=== PATIENT | male | born 1935 | race Caucasian/White ===

== ENCOUNTER 2017-04-21 11:29 | Observation (INO) | payer MEDICARE, BC ==
[~2017-04-21] VITALS: Ht 180.3 cm; Wt 80.0 kg
[2017-04-21] VITALS (7 sets, daily range): BP systolic 140–192; BP diastolic 63–88; PULSE 53–72; RESP 16–20; TEMP 97.7–99.1; O2SAT 94–99
[~2017-04-21 11:29] MED LIST: ASPI81TA22 PO; BETA0.052 TOPICAL; FLUT1LOT TOPICAL; IPRAAER INH; KETO2CRE TOPICAL; SYMB80AE INH
[2017-04-21] MEDS ORDERED: AMLO10TA2 PO (11:57)
[2017-04-21] MEDS ORDERED: FURO20TA PO (11:57)
[2017-04-21] MEDS ORDERED: SODIUM CHLORIDE 0.9% FLUSH 10 ML FLUSH IVF PRN (12:00)
--- NOTE | 2017-04-21 12:08 | PD ---
HPI Chief Complaint: Syncope/Near-Syncope Time Seen by Provider: 11:56 Travel History International Travel<30 days: No Contact w/Intl Traveler<30days: No Traveled to known affect area: No History of Present Illness HPI Patient is an 82-year-old male presents emergency department after syncopal episode. The patient states he was sitting down to dinner the next thing he knew he was on the ground. His is in the next room heard him hit the ground and then went to investigate and found coffee grounds everywhere, no seizure activity was seen. The patient now is endorsing some chest tightness, states was mild about 3 out of 10 and is gradually resolving. He is followed by Dr. rodriguez said he had a stress test this time last year. He states he had a heart attack before but cannot remember any details. PFSH Past Medical History High Cholesterol: Yes COPD: Yes Diminished Hearing: Yes ([place]) Hypertension: Yes Respiratory: Yes (COPD) Integumentary: Yes (ACTINIC KERATOSIS) Tetanus Vaccination: > 5 Years Influenza Vaccination: No Social History Alcohol Use: Yes (OCCAS) Tobacco Use: No Substance Use: No Allergies-Medications (Allergen,Severity, Reaction): Coded Allergies: amoxicillin (Unverified Allergy, Severe, DONT REMEMBER, 04/21/17) clavulanic acid (Unverified Allergy, Severe, DONT REMEMBER, 04/21/17) penicillin G (Unverified Allergy, Severe, HIVES, 04/21/17) prednisone (Unverified Allergy, Severe, IMPENDING DOOM, 04/21/17) simvastatin (Unverified Allergy, Severe, CAN'T REMEMBER, 04/21/17) tiotropium (Unverified Allergy, Severe, CAN'T REMEMBER, 04/21/17) Reported Meds & Prescriptions Reported Meds & Active Scripts Active Reported Furosemide 20 Mg Tab 20 Mg PO DAILY Amlodipine (Amlodipine Besylate) 10 Mg Tab 10 Mg PO DAILY Combivent Respimat Inh (Ipratropium-Albuterol Inh) 20-100 Alf/Act Aero 1 Puff INH QID Review of Systems Except as stated in HPI: all other systems reviewed are Neg Physical Exam Narrative GENERAL: Well-developed well-nourished no obvious distress SKIN: Focused skin assessment warm/dry. HEAD: Atraumatic. Normocephalic. EYES: Pupils equal and round. No scleral icterus. No injection or drainage. ENT: No nasal bleeding or discharge. Mucous membranes pink and moist. NECK: Trachea midline. No JVD. CARDIOVASCULAR: Regular rate and rhythm. No murmur appreciated. 2+ but equal pulses in all 4 extremities RESPIRATORY: No accessory muscle use. Clear to auscultation. Breath sounds equal bilaterally. GASTROINTESTINAL: Abdomen soft, non-tender, nondistended. Hepatic and splenic margins not palpable. MUSCULOSKELETAL: No obvious deformities. No clubbing. No cyanosis. No edema. NEUROLOGICAL: Awake and alert cranial nerves II through XII are grossly intact and nonfocal, 5 out of 5 strength in all 4 extremity's. Cerebellar testing negative. PSYCHIATRIC: Appropriate mood and affect; insight and judgment normal. Data Data Last Documented VS Vital Signs Date Time Temp Pulse Resp B/P (MAP) Pulse Ox O2 Delivery O2 Flow Rate FiO2 04/21/17 11:53 20 98 Room Air 04/21/17 11:48 53 04/21/17 11:43 97.8 Orders Orders Complete Blood Count With Diff (04/21/17 11:47) Comprehensive Metabolic Panel (04/21/17 11:47) Magnesium (Mg) (04/21/17 11:47) Prothrombin Time / Inr (Pt) (04/21/17 11:47) Act Partial Throm Time (Ptt) (04/21/17 11:47) Troponin I (04/21/17 11:47) Ecg Monitoring (04/21/17 11:47) Iv Access Insert/Monitor (04/21/17 11:47) Oximetry (04/21/17 11:47) Oxygen Administration (04/21/17 11:47) Sodium Chloride 0.9% Flush (Ns Flush) (04/21/17 12:00) Electrocardiogram (04/21/17 11:41) Admit Order (Ed Use Only) (04/21/17 ) Labs Laboratory Tests Test 04/21/17 12:20 White Blood Count 7.8 TH/MM3 Red Blood Count 5.01 MIL/MM3 Hemoglobin 15.6 GM/DL Hematocrit 46.0 % Mean Corpuscular Volume 92.0 FL Mean Corpuscular Hemoglobin 31.3 PG Mean Corpuscular Hemoglobin Concent 34.0 % Red Cell Distribution Width 13.7 % Platelet Count 184 TH/MM3 Mean Platelet Volume 7.2 FL Neutrophils (%) (Auto) 75.9 % Lymphocytes (%) (Auto) 16.6 % Monocytes (%) (Auto) 5.9 % Eosinophils (%) (Auto) 0.6 % Basophils (%) (Auto) 1.0 % Neutrophils # (Auto) 5.9 TH/MM3 Lymphocytes # (Auto) 1.3 TH/MM3 Monocytes # (Auto) 0.5 TH/MM3 Eosinophils # (Auto) 0.0 TH/MM3 Basophils # (Auto) 0.1 TH/MM3 CBC Comment DIFF FINAL Differential Comment Prothrombin Time 10.1 SEC Prothromb Time International Ratio 1.0 RATIO Activated Partial Thromboplast Time 23.6 SEC Blood Urea Nitrogen 18 MG/DL Creatinine 1.32 MG/DL Random Glucose 130 MG/DL Total Protein 7.4 GM/DL Albumin 3.8 GM/DL Calcium Level 9.4 MG/DL Magnesium Level 2.2 MG/DL Alkaline Phosphatase 64 U/L Aspartate Amino Transf (AST/SGOT) 21 U/L Alanine Aminotransferase (ALT/SGPT) 19 U/L Total Bilirubin 0.3 MG/DL Sodium Level 138 MEQ/L Potassium Level 4.5 MEQ/L Chloride Level 102 MEQ/L Carbon Dioxide Level 27.9 MEQ/L Anion Gap 8 MEQ/L Estimat Glomerular Filtration Rate 52 ML/MIN Troponin I LESS THAN 0.02 NG/ML MDM Medical Decision Making Medical Screen Exam Complete: Yes Emergency Medical Condition: Yes Differential Diagnosis Vasovagal syncope, cardiogenic syncope, anemia, electrolyte abnormality. Narrative Course Patient roomed emerged permit, appears well and in obvious distress, EKG is nonischemic, initial troponin negative, lecture lites within normal limits and H &H within normal limits. Discussed with the patient need for observation status for further workup, he's not had a cardiac catheterization or stress test in some time according to him. He is discussed with the residents for admission, he stable for floor on telemetry. Diagnosis Primary Impression: Syncope and collapse Admitting Information Admitting Physician Requests: Observation Condition: Stable Hipolito Menard MD Apr 21, 2017 12:07
[2017-04-21 12:35] LABS: AUTOMATED NEUTROPHIL # 5.9 TH/MM3 (1.8-7.7); BASOPHIL # 0.1 TH/MM3 (0-0.2); EOSINOPHIL % 0.6 % (0.0-4.0); HEMO FLAGS DIFF FINAL; LYMPH % 16.6 % (9.0-44.0); LYMPHOCYTE # 1.3 TH/MM3 (1.0-4.8); MEAN CORPUSCULAR HEMOGLOBIN 31.3 PG (27.0-34.0); MONO % 5.9 % (0.0-8.0); NEUT % 75.9 % (16.0-70.0); PLATELET COUNT 184 TH/MM3 (150-450); RED BLOOD COUNT 5.01 MIL/MM3 (4.50-5.90); RED CELL DISTRIBUTION WIDTH 13.7 % (11.6-17.2); WHITE BLOOD COUNT 7.8 TH/MM3 (4.0-11.0)
[2017-04-21 12:41] LABS: APTT (PATIENT) 23.6 SEC (24.3-30.1); PROTHROMBIN TIME - PATIENT 10.1 SEC (9.8-11.6)
[2017-04-21 12:48] LABS: ALT (GPT) 19 U/L (12-78)
[2017-04-21 12:52] LABS: ALKALINE PHOSPHATASE 64 U/L (45-117); ANION GAP 8 MEQ/L (5-15); AST (GOT) 21 U/L (15-37); BICARBONATE 27.9 MEQ/L (21.0-32.0); BLOOD UREA NITROGEN 18 MG/DL (7-18); CHLORIDE 102 MEQ/L (98-107); GLOMERULAR FILTRATION RATE 52 ML/MIN (>89); MAGNESIUM 2.2 MG/DL (1.5-2.5); POTASSIUM 4.5 MEQ/L (3.5-5.1); SODIUM (NA) 138 MEQ/L (136-145); TOTAL BILIRUBIN ADULT 0.3 MG/DL (0.2-1.0)
--- NOTE | 2017-04-21 14:44 | HHI.HP ---
[facility] Service Family Medicine Primary Care Physician Christian Rodrigues MD Admission Diagnosis Syncope, Chest pain Diagnoses: Chief Complaint: syncope International Travel<30 Days: No Contact w/Intl Traveler<30days: No Known Affected Area: No History of Present Illness 82-year-old male with history of hypertension, COPD who presents today with syncopal episode. Patient was eating breakfast this morning, the next thing he remembers was waking up on the floor. Denies hitting his head. His was outside and immediately came in after she heard the thump. This has happened before, last was in September 2016. He states he was seen in [place] emergency department. He denies any seizure-like activity. Said he had a taste in his mouth, like acid right before started. Also follicular is having difficulty breathing. Denies any dizziness or lightheadedness. He also states that right before happens, he doesn't know where he is and that he feels like he is in a tunnel. Had some chest pain afterwards, felt like his chest was pain squeezed. Was initially 5/10, now it has resolved. Denies any lightheadedness when standing up. After the syncopal episode, he took a nap for 2 hours. Did have some urinary incontinence at that time. No bowel or bladder incontinence at the time of the event. He did not bite his tongue. Denies any palpitations. Also endorses chest pain at the previous syncopal episode, denies any other chest pain at rest. Denies any numbness/tingling, weakness, headaches. His PCP is Dr. Rodrigues. He also sees the air sampler, Dr. Palacios. Upon further questioning, he states that they think he had a myocardial infarction and his last syncopal episode. He did used to see the air sampler, where he states his blood pressure has been elevated recently. He thinks he may have been diagnosed with CHF as well. Review of Systems Constitutional: DENIES: Diaphoretic episodes, Fever, Weight loss, Chills Eyes: DENIES: Blurred vision, Vision loss, Double Vision Ears, nose, mouth, throat: DENIES: Hearing loss, Sinus Pain Respiratory: DENIES: Cough, Shortness of breath Cardiovascular: COMPLAINS OF: Chest pain, Syncope, Lower Extremity Edema, DENIES: Palpitations Gastrointestinal: DENIES: Abdominal pain, Constipation, Diarrhea, Nausea, Vomiting Genitourinary: DENIES: Hematuria, Dysuria Musculoskeletal: DENIES: Back pain, Neck pain Integumentary: DENIES: Abnormal pigmentation, Rash Neurologic: DENIES: Headache, Localized weakness, Paresthesias, Seizures, Tremor, Poor Balance Psychiatric: DENIES: Confusion, Mood changes Past Family Social History Past Medical History COPD HTN CHF/NJ Past Surgical History Left knee trauma Reported Medications Reported Meds & Active Scripts Active Reported Furosemide 20 Mg Tab 20 Mg PO DAILY Amlodipine (Amlodipine Besylate) 10 Mg Tab 10 Mg PO DAILY Combivent Respimat Inh (Ipratropium-Albuterol Inh) 20-100 Intermediate/Act Aero 1 Puff INH QID Allergies: Coded Allergies: amoxicillin (Unverified Allergy, Severe, DONT REMEMBER, 04/21/17) clavulanic acid (Unverified Allergy, Severe, DONT REMEMBER, 04/21/17) penicillin G (Unverified Allergy, Severe, HIVES, 04/21/17) prednisone (Unverified Allergy, Severe, IMPENDING DOOM, 04/21/17) simvastatin (Unverified Allergy, Severe, CAN'T REMEMBER, 04/21/17) tiotropium (Unverified Allergy, Severe, CAN'T REMEMBER, 04/21/17) Active Ordered Medications Active Medications Sodium Chloride (NS Flush) 2 ml UNSCH PRN IVF; Start 04/21/17 at 12:00 Family History Heart disease in family Social History Lives at home with , other odd jobs Alcohol-occasional beer Tobacco-Quit 13 years ago; smoked 1/2PPD for 60years Physical Exam Vital Signs Vital Signs Date Time Temp Pulse Resp B/P (MAP) Pulse Ox O2 Delivery O2 Flow Rate FiO2 04/21/17 11:53 20 98 Room Air 04/21/17 11:48 53 98 Room Air 04/21/17 11:43 97.8 53 16 140/63 (88) 98 04/21/17 11:34 97.7 55 18 192/81 (118) 94 Physical Exam GENERAL: This is a well-nourished, well-developed patient, in no apparent distress. SKIN: No rashes, ecchymoses or lesions. Cool and dry. HEAD: Atraumatic. Normocephalic. No temporal or scalp tenderness. EYES: Pupils equal round and reactive. Extraocular motions intact. No scleral icterus. No injection or drainage. ENT: Throat without erythema, tonsillar hypertrophy or exudate. Uvula midline. Airway patent. NECK: Trachea midline. No JVD or lymphadenopathy. Supple, nontender. CARDIOVASCULAR: Regular rate and rhythm without murmurs, gallops, or rubs. RESPIRATORY: Clear to auscultation. Breath sounds equal bilaterally. No wheezes , rales, or rhonchi. GASTROINTESTINAL: Abdomen soft, non-tender, nondistended. No hepato-splenomegaly , or palpable masses. No guarding. MUSCULOSKELETAL: Extremities without clubbing, cyanosis, or edema. No joint tenderness, effusion, or edema noted. No calf tenderness. NEUROLOGICAL: Awake and alert. Cranial nerves II through XII intact. Motor and sensory grossly within normal limits. Five out of 5 muscle strength in all muscle groups. Normal speech. Laboratory Laboratory Tests Test 04/21/17 12:20 White Blood Count 7.8 Red Blood Count 5.01 Hemoglobin 15.6 Hematocrit 46.0 Mean Corpuscular Volume 92.0 Mean Corpuscular Hemoglobin 31.3 Mean Corpuscular Hemoglobin Concent 34.0 Red Cell Distribution Width 13.7 Platelet Count 184 Mean Platelet Volume 7.2 Neutrophils (%) (Auto) 75.9 Lymphocytes (%) (Auto) 16.6 Monocytes (%) (Auto) 5.9 Eosinophils (%) (Auto) 0.6 Basophils (%) (Auto) 1.0 Neutrophils # (Auto) 5.9 Lymphocytes # (Auto) 1.3 Monocytes # (Auto) 0.5 Eosinophils # (Auto) 0.0 Basophils # (Auto) 0.1 CBC Comment DIFF FINAL Differential Comment Prothrombin Time 10.1 Prothromb Time International Ratio 1.0 Activated Partial Thromboplast Time 23.6 Blood Urea Nitrogen 18 Creatinine 1.32 Random Glucose 130 Total Protein 7.4 Albumin 3.8 Calcium Level 9.4 Magnesium Level 2.2 Alkaline Phosphatase 64 Aspartate Amino Transf (AST/SGOT) 21 Alanine Aminotransferase (ALT/SGPT) 19 Total Bilirubin 0.3 Sodium Level 138 Potassium Level 4.5 Chloride Level 102 Carbon Dioxide Level 27.9 Anion Gap 8 Estimat Glomerular Filtration Rate 52 Troponin I LESS THAN 0.02 Result Diagram: 04/21/17 1220 04/21/17 1220 Caprini VTE Risk Assessment Caprini VTE Risk Assessment: Mod/High Risk (score >= 2) Caprini Risk Assessment Model Point Value = 1 Point Value = 2 Point Value = 3 Point Value = 5 Age 41-60 Minor surgery BMI > 25 kg/m2 Swollen legs Varicose veins or History of unexplained or recurrent spontaneous Oral contraceptives or hormone replacement Sepsis (< 1 month) Serious lung disease, including pneumonia (< 1 month) Abnormal pulmonary function Acute myocardial infarction Congestive heart failure (< 1 month) History of inflammatory bowel disease Medical patient at bed rest Age 61-74 Arthroscopic surgery Major open surgery (> 45 min) Laparoscopic surgery (> 45 min) Malignancy Confined to bed (> 72 hours) Immobilizing plaster cast Central venous access Age >= 75 History of VTE Family history of VTE Factor V Leiden Prothrombin [id number] Lupus anticoagulant Anticardiolipin antibodies Elevated serum homocysteine Heparin-induced thrombocytopenia Other congenital or acquired thrombophilia Stroke (< 1 month) Elective arthroplasty Hip, pelvis, or leg fracture Acute spinal cord injury (< 1 month) Prophylaxis Regimen Total Risk Factor Score Risk Level Prophylaxis Regimen 0-1 Low Early ambulation 2 Moderate Order ONE of the following: *Sequential Compression Device (SCD) *Heparin 5000 units SQ BID 3-4 Higher Order ONE of the following medications: *Heparin 5000 units SQ TID *Enoxaparin/Lovenox 40 mg SQ daily (WT < 150 kg, CrCl > 30 mL/min) *Enoxaparin/Lovenox 30 mg SQ daily (WT < 150 kg, CrCl > 10-29 mL/min) *Enoxaparin/Lovenox 30 mg SQ BID (WT < 150 kg, CrCl > 30 mL/min) AND/OR *Sequential Compression Device (SCD) 5 or more Highest Order ONE of the following medications: *Heparin 5000 units SQ TID (Preferred with Epidurals) *Enoxaparin/Lovenox 40 mg SQ daily (WT < 150 kg, CrCl > 30 mL/min) *Enoxaparin/Lovenox 30 mg SQ daily (WT < 150 kg, CrCl > 10-29 mL/min) *Enoxaparin/Lovenox 30 mg SQ BID (WT < 150 kg, CrCl > 30 mL/min) AND *Sequential Compression Device (SCD) Assessment and Plan Assessment and Plan 82-year-old male with history of hypertension, COPD, heart disease who presents today with syncopal episode. We will admit for evaluation and workup. Code Status Full Discussed Condition With Dr. Menard Problem List: (1) Syncope ICD Codes: R55 - Syncope and collapse Plan: Patient with syncopal episode earlier this morning. This is his second syncopal episode in the last year. He has history of heart disease, likely CHF and possible [place] in the past as well. DDx: Cardiac, including arrhythmia, bradycardia, structural disease; orthostatic , including autonomic; psychogenic vs neurologic. No neurological findings. Patient did present with elevated blood pressure, and borderline bradycardia EKG: wnl, no ST changes; Initial troponin <0.02 -Trend troponins/EKG -Orthostatic vital signs -Neuro checks -2D Echo -US carotids -Telemetry (2) Hypertension ICD Codes: I10 - Essential (primary) hypertension Status: Acute Plan: BP 192/81 on arrival. Trended down without intervention -Regular vitals -Orthostatic BP -Continue home meds (Med rec with Dr. Palacios's office) -Amlodipine 5mg daily -Losartan 25mg daily -Metoprolol tartrate 25mg BID (3) CHF (congestive heart failure) ICD Codes: I50.9 - Heart failure, unspecified (4) COPD (chronic obstructive pulmonary disease) ICD Codes: J44.9 - Chronic obstructive pulmonary disease, unspecified Plan: Continue home Symbicort Oxygen PRN (5) FEN Status: Acute Plan: Fluids: PO, limit fluids due to CHF Electrolytes: wnl Nutrition: heart healthy diet DVT ppx: heparin Problem Qualifiers (1) Syncope: Qualified Codes: R55 - Syncope and collapse (2) Hypertension: Qualified Codes: I10 - Essential (primary) hypertension (3) CHF (congestive heart failure): Qualified Codes: I50.9 - Heart failure, unspecified (4) COPD (chronic obstructive pulmonary disease): Qualified Codes: J44.9 - Chronic obstructive pulmonary disease, unspecified Vish Damico MD, R2 Apr 21, 2017 14:44
[2017-04-21] MEDS ORDERED: SODIUM CHLORIDE 0.9% FLUSH 10 ML FLUSH IV FLUSH PRN (15:30)
[2017-04-21] MEDS ORDERED: ACETAMINOPHEN 325 MG TAB PO PRN (16:00)
[2017-04-21] MEDS ORDERED: ONDANSETRON HCL 4 MG/2 ML VIAL IVP PRN (16:00)
[2017-04-21] MEDS: HEPARIN SODIUM - SQ 10,000 UNITS/ML VIAL SQ SCH (16:01)
[2017-04-21] MEDS: ALBUTEROL SULFATE 90 MCG/ACT HFA 8 GM INHALER INH SCH ×2 (17:23→21:00)
[2017-04-21] MEDS ORDERED: NON-FORMULARY DRUG (Ipratropium-Albuterol Inh (Combivent Respimat Inh) 1 PUFF) INH SCH (18:00)
[2017-04-21] MEDS ORDERED: hydrALAZINE HCL 10 MG TAB PO PRN (19:45)
[2017-04-21] MEDS: METOPROLOL TARTRATE 25 MG TAB PO SCH (21:23)
[2017-04-21] MEDS: SODIUM CHLORIDE 0.9% FLUSH 10 ML FLUSH IV FLUSH SCH (21:24)
--- NOTE | 2017-04-21 22:33 | RADRPT ---
EXAM DATE/TIME: 04/21/2017 18:11 [place] COMPARISON: No previous studies available for comparison. INDICATIONS : Syncope. MEDICAL HISTORY : Hypercholesterolemia. Hypertension. Syncope. COPD. SURGICAL HISTORY : Knee arthroscopy. ENCOUNTER: Initial ACUITY: 1 day PAIN SCORE: 10 LOCATION: Bilateral neck PEAK SYSTOLIC VELOCITIES (cm/sec): ICA/CCA RATIO: Right: 1.1 Left: 0.8 ICA: Right: 73.7 Left: 67.2 CCA: Right: 65.9 Left: 80.6 ECA: Right: 100.0 Left: 118.0 VERTEBRAL: Right: 50.4 antegrade Left: 39.8 antegrade Elevated flow velocities and ICA/CCA ratios have been found to correlate with increased degrees of vessel stenosis, calculated as percentage of diameter relative to a normal segment of distal ICA/CCA FINDINGS: RIGHT CAROTID: No significant stenosis is visualized. There is mild shadowing calcified plaque in the internal mina tid artery. The waveforms are within normal limits. LEFT CAROTID: No significant stenosis is visualized. There is mild shadowing calcified plaque in the distal common carotid artery. The waveforms are within normal limits. VERTEBRAL ARTERIES: Antegrade flow is seen in both vertebral arteries. CONCLUSION: Bilateral calcified plaque with hemodynamic profile characteristic of less than 50% stenosis. Jatin Samuel MD on April 21, 2017 at 22:29 Board Certified Radiologist. This report was verified electronically.
[2017-04-22 00:43] VITALS: BP 162/74; PULSE 52; RESP 20; TEMP 97.9; O2SAT 95
[2017-04-22] MEDS: HEPARIN SODIUM - SQ 10,000 UNITS/ML VIAL SQ SCH (04:00)
[2017-04-22 04:20] VITALS: BP 157/69; PULSE 56; RESP 18; TEMP 97.9; O2SAT 94
[2017-04-22] MEDS: ALBUTEROL SULFATE 90 MCG/ACT HFA 8 GM INHALER INH SCH ×2 (07:59→13:00)
[2017-04-22] MEDS: METOPROLOL TARTRATE 25 MG TAB PO SCH (07:59)
[2017-04-22 08:00] VITALS: PULSE 64
[2017-04-22] MEDS: SODIUM CHLORIDE 0.9% FLUSH 10 ML FLUSH IV FLUSH SCH (08:00)
[2017-04-22] MEDS ORDERED: FUROSEMIDE 20 MG TAB PO SCH (09:00)
[2017-04-22] MEDS ORDERED: LOSARTAN 25 MG TAB PO SCH (09:00)
[2017-04-22] MEDS ORDERED: TIOTROPIUM BROMIDE 18 MCG INH INH SCH (09:00)
[2017-04-22 09:27] VITALS: BP 171/73; PULSE 51; RESP 12; TEMP 97; O2SAT 95
--- NOTE | 2017-04-22 12:12 | HHI.FPPN ---
Subjective Remarks Patient seen and examined this morning. No acute events overnight. Patient reports no complaints/concerns this morning. Denies any syncopal episodes overnight of this morning. He has been up walking around. No lightheadedness/ dizziness, chest pain, shortness of breath, fevers/chills, nausea/vomiting, constipation/diarrhea. He is eager to go home today. (Vish Damico MD, R2) Objective Vitals Vital Signs Date Time Temp Pulse Resp B/P (MAP) Pulse Ox O2 Delivery O2 Flow Rate FiO2 04/22/17 09:27 97.0 51 12 171/73 (105) 95 04/22/17 04:20 97.9 56 18 157/69 (98) 94 04/22/17 00:43 97.9 52 20 162/74 (103) 95 04/21/17 21:45 97 04/21/17 18:31 71 04/21/17 17:41 99.1 72 19 178/78 (111) 99 163/76 (105) 192/88 (122) 04/21/17 16:14 04/21/17 15:59 67 16 161/73 (102) 95 Room Air I/O 04/21/17 04/21/17 04/21/17 04/22/17 04/22/17 04/22/17 07:00 15:00 23:00 07:00 15:00 23:00 Intake Total 450 ml Output Total 500 ml Balance -50 ml Intake Oral 450 ml Output Urine Total 500 ml # Voids 2 2 (Vish Damico MD, R2) Result Diagram: 04/21/17 1220 04/21/17 1220 Objective Remarks GENERAL: No acute distress. Lying in bed. CARDIOVASCULAR: Regular rate and rhythm. RESPIRATORY: No accessory muscle use. Clear to auscultation. Breath sounds equal bilaterally. GASTROINTESTINAL: Abdomen soft, non-tender, nondistended. Hepatic and splenic margins not palpable. MUSCULOSKELETAL: Extremities without clubbing, cyanosis, or edema. No obvious deformities. NEUROLOGICAL: Awake and alert. Motor grossly within normal limits. Normal speech. PSYCHIATRIC: Appropriate mood and affect; insight and judgment normal. (Vish Damico MD, R2) A/P Assessment and Plan 82-year-old male with history of hypertension, COPD, heart disease admitted for syncopal episode. Discharge Planning Today after echocardiogram (Vish Damico MD, R2) Attending Attestation THIS CASE WAS DISCUSSED WITH THE RESIDENT PHYSICIANS. I HAVE REVIEWED THE RECORD , PATIENT SEEN AND EXAMINED< AND AGREE WITH THE ABOVE NOTE AND PLAN OF CARE WAS DISCUSSED. I HAVE AUTHORIZED THE ORDERS (Gómez Monsivais MD) Problem List: (1) Syncope ICD Codes: R55 - Syncope and collapse Plan: Patient with syncopal episode. This is his second syncopal episode in the last year. He has history of heart disease, likely CHF and possible [place] in the past as well. Likely caused due to vasovagal vs medication effects. EKG: wnl, no ST changes; ACS negative US carotids: <50% stenosis -Neuro checks -2D Echo -Telemetry (2) Hypertension ICD Codes: I10 - Essential (primary) hypertension Status: Acute Plan: BP 192/81 on arrival. Trended down without intervention -Regular vitals -Continue home meds (Med rec with Dr. Palacios's office) -Amlodipine 5mg daily -Losartan 25mg daily -Metoprolol tartrate 25mg BID (3) CHF (congestive heart failure) ICD Codes: I50.9 - Heart failure, unspecified Status: Chronic Plan: Continue lasix Echo pending today (4) COPD (chronic obstructive pulmonary disease) ICD Codes: J44.9 - Chronic obstructive pulmonary disease, unspecified Plan: Continue home Symbicort Oxygen PRN (5) FEN Status: Acute Plan: Fluids: PO, limit fluids due to CHF Electrolytes: wnl Nutrition: heart healthy diet DVT ppx: heparin (Vish Damico MD, R2) Problem Qualifiers (1) Syncope: Qualified Codes: R55 - Syncope and collapse (2) Hypertension: Qualified Codes: I10 - Essential (primary) hypertension (3) CHF (congestive heart failure): Qualified Codes: I50.9 - Heart failure, unspecified (4) COPD (chronic obstructive pulmonary disease): Qualified Codes: J44.9 - Chronic obstructive pulmonary disease, unspecified Vish Damico MD, R2 Apr 22, 2017 12:12 Gómez Monsivais MD Apr 23, 2017 10:24
[2017-04-22 12:21] LABS: AUTOMATED NEUTROPHIL # 3.7 TH/MM3 (1.8-7.7); BASOPHIL % 0.7 % (0.0-2.0); EOSINOPHIL % 0.4 % (0.0-4.0); HEMATOCRIT 45.8 % (39.0-51.0); HEMO FLAGS DIFF FINAL; LYMPH % 22.5 % (9.0-44.0); LYMPHOCYTE # 1.2 TH/MM3 (1.0-4.8); MEAN CELL VOLUME 91.3 FL (80.0-100.0); MEAN CORPUSCULAR HEMOGLOBIN 31.3 PG (27.0-34.0); MEAN CORPUSCULAR HGB CONC 34.3 % (32.0-36.0); MONO % 7.5 % (0.0-8.0); NEUT % 68.9 % (16.0-70.0); PLATELET COUNT 201 TH/MM3 (150-450); RED BLOOD COUNT 5.02 MIL/MM3 (4.50-5.90); RED CELL DISTRIBUTION WIDTH 13.4 % (11.6-17.2); WHITE BLOOD COUNT 5.4 TH/MM3 (4.0-11.0)
[2017-04-22 12:35] LABS: ANION GAP 5 MEQ/L (5-15); BICARBONATE 32.3 MEQ/L (21.0-32.0); BLOOD UREA NITROGEN 13 MG/DL (7-18); CHLORIDE 101 MEQ/L (98-107); GLOMERULAR FILTRATION RATE 60 ML/MIN (>89); POTASSIUM 4.1 MEQ/L (3.5-5.1); SODIUM (NA) 138 MEQ/L (136-145)
--- NOTE | 2017-04-22 13:00 | EKG ---
Date Performed: 04/22/2017 Time Performed: 02:17:52 PTAGE: 82 years EKG: SINUS BRADYCARDIA BORDERLINE ECG PREVIOUS TRACING : 04/21/2017 18.39 Compared to prior tracing no significant change DOCTOR: Yosvany Jacobo Interpretating Date/Time 04/22/2017 12:58:23
--- NOTE | 2017-04-22 13:00 | EKG ---
Date Performed: 04/21/2017 Time Performed: 11:41:09 PTAGE: 82 years EKG: SINUS BRADYCARDIA BORDERLINE ECG Compared to prior tracing no significant change DOCTOR: Yosvany Jacobo Interpretating Date/Time 04/22/2017 12:58:56
--- NOTE | 2017-04-22 13:00 | EKG ---
Date Performed: 04/21/2017 Time Performed: 18:39:46 PTAGE: 82 years EKG: SINUS BRADYCARDIA MINIMAL ST DEPRESSION BORDERLINE ECG PREVIOUS TRACING : 04/21/2017 11.41 Compared to prior tracing no significant change DOCTOR: Yosvany Jacobo Interpretating Date/Time 04/22/2017 12:58:43
[2017-04-22 13:03] VITALS: BP 172/74; PULSE 57; RESP 18; TEMP 97.8; O2SAT 95
--- NOTE | 2017-04-22 14:36 | HHI.DCPOC ---
Discharge Care Plan Diagnosis: (1) Hypertension (2) Syncope (3) CHF (congestive heart failure) (4) COPD (chronic obstructive pulmonary disease) Goals to Promote Your Health * To prevent worsening of your condition and complications * To maintain your health at the optimal level Directions to Meet Your Goals Take your medications as prescribed Follow your dietary instruction Follow activity as directed Keep your appointments as scheduled Take your immunizations and boosters as scheduled If your symptoms worsen call your PCP, if no PCP go to Urgent Care Center or Emergency Room Smoking is Dangerous to Your Health. Avoid second hand smoke Call the 24-hour hour crisis hotline for domestic abuse at Vish Damico MD, R2 Apr 22, 2017 14:36
[2017-04-22] MEDS ORDERED: METO25TA3 PO (14:37)
[2017-04-22] MEDS ORDERED: COZA25TA PO (14:37)
[2017-04-22 14:52] VITALS: BP 156/60
--- NOTE | 2017-04-22 16:22 | ECHRPT ---
Indication: SYNCOPE CONCLUSIONS Very technically difficult study. Limited images due to COPD. Overall very limited echocardiogram, unable to determine anything of clinical value. BP: 157 / 69 HR: 56 Rhythm: Sinus MEASUREMENTS (Male / Female) Normal Values Technical Quality:Very technically difficult study M-MODE LV Diastolic Diameter MM 4.2 cm 4.2 - 5.9 / 3.9 - 5.3 cm LV Systolic Diameter MM 3.2 cm LV Ejection Fraction MM Teich 47.0 % LV Cardiac Index MM Teich 1036.5 cm/minm IVS Diastolic Thickness MM 1.2 cm 0.6 - 1.0 / 0.6 - 0.9 cm LVPW Diastolic Thickness MM 1.2 cm 0.6 - 1.0 / 0.6 - 0.9 cm LV Relative Wall Thickness MM 0.6 0.24 - 0.42 / 0.22 - 0.42 LV Mass Index MM 90.5 g/m 49 - 115 / 43 - 95 g/m RV Diastolic Diameter MM 2.5 cm FINDINGS LEFT VENTRICLE The left ventricle is not well visualized. RIGHT VENTRICLE The right ventricle was not well visualized. LEFT ATRIUM The left atrium was not well visualized. RIGHT ATRIUM The right atrium is not well visualized. ATRIAL SEPTUM The interatrial septum not well visualized. AORTA The aortic root and proximal ascending aorta are not well visualized. MITRAL VALVE The mitral valve is not well visualized. AORTIC VALVE The aortic valve is not well visualized. TRICUSPID VALVE The tricuspid valve is not well visualized. PULMONARY VALVE The pulmonary valve is not well visualized. Aron Candelaria DO (Electronically Signed) Final Date:22 April 2017 16:21
== END 2017-04-22 16:20 | disposition home or self-care (01) ==
LOC: NEPC 11:29 → NEDA 14:42 → NEPGCP 16:40
PROVIDERS: ADMIT Family Medicine; ATTEND Family Medicine
DX: R55 Syncope and collapse (principal); R00.1 Bradycardia, unspecified; I11.0 Hypertensive heart disease with heart failure; I50.9 Heart failure, unspecified; J44.9 Chronic obstructive pulmonary disease, unspecified; E78.00 Pure hypercholesterolemia, unspecified; I25.2 Old myocardial infarction; R32 Unspecified urinary incontinence; H91.90 Unspecified hearing loss, unspecified ear; Z79.899 Other long term (current) drug therapy; Z87.891 Personal history of nicotine dependence
CPT/HCPCS: 80048; 80053; 80307; 83735; 84484; 85025; 85610; 85730; 93005; 93306; 93880; 99285; G0378; J1644

== ENCOUNTER 2017-10-03 07:48 | Day surgery (SDC) | payer MEDICARE, BC ==
[~2017-10-03 07:48] MED LIST changes: +AMLO10TA2 PO; -ASPI81TA22 PO; -BETA0.052 TOPICAL; -FLUT1LOT TOPICAL; +FURO20TA PO; -KETO2CRE TOPICAL; +METO25TA3 PO; -SYMB80AE INH
[2017-10-03] MEDS ORDERED: FLUT1LOT TOPICAL (08:28)
[2017-10-03] MEDS ORDERED: HYDR25TA5 PO (08:28)
[2017-10-03] MEDS ORDERED: BETA0.052 TOPICAL (08:28)
[2017-10-03] MEDS ORDERED: KETO2CRE TOPICAL (08:28)
[2017-10-03] MEDS ORDERED: IPRAAER INH (08:28)
[2017-10-03] MEDS ORDERED: VANCOMYCIN 1000 MG/NS 250 ML IV SCH ×2 (08:30)
[2017-10-03] MEDS ORDERED: POVIDONE IODINE 5% (ANTISEPSIS KIT) 4 APPLICATIONS EACH NARE SCH (08:30)
[2017-10-03] MEDS ORDERED: MUPIROCIN 2% OINT 1 APPLIC/GM SYR NASAL SCH (08:30)
[2017-10-03] MEDS ORDERED: CHLORHEXIDINE GLUCONATE 2 % 1 PACK (2 CLOTHS) TOPICAL SCH (08:30)
--- NOTE | 2017-10-03 11:09 | MA ---
cc: Driss Sosa MD DATE: 10/03/2017 PROCEDURE PERFORMED: Loop recorder insertion. INDICATIONS FOR THE PROCEDURE: Syncope. DESCRIPTION OF PROCEDURE: The patient was brought to the DOC Unit in the postabsorptive state. After informed consent was obtained, a Xylo LINQ loop recorder was inserted subcutaneously to the left chest. The patient tolerated the procedure well without any apparent complications. Tachybrady pause and atrial fibrillation detection was enabled. The initial R-wave was 0.28 millivolts. The serial number was [id number]. Driss Sosa MD ADRIANE/TAMIE , 10:58 AM , 11:08 AM
== END 2017-10-03 12:30 | disposition home or self-care (01) ==
LOC: HDOC 07:48 → HDIC 07:48 → HDOC 12:30
PROVIDERS: ATTEND Nuclear Medicine Nuclear Cardiology
DX: R55 Syncope and collapse (principal)
CPT/HCPCS: 33282; C1764

== ENCOUNTER 2018-04-24 09:03 | Inpatient (IN) ==
[2018-04-24 10:06] LABS: Baso % (Auto) 0.3 % (0.0-2.0); Eos % (Auto) 0.1 % (0.0-4.0); Hematocrit 45.8 % (39.0-51.0); Hemoglobin 16.1 gm/dL (13.0-17.0); Lymph # (Auto) 0.6 th/mm3 (1.0-4.8); Mean Corpuscular Hemoglobin 32.2 pg (27.0-34.0); Mean Corpuscular Volume 91.9 fL (80.0-100.0); Mean Platelet Volume 7.2 fL (7.0-11.0); Mono # (Auto) 0.4 th/mm3 (0.0-0.9); Mono % (Auto) 4.6 % (0.0-8.0); Platelet Count 183 th/mm3 (150-450); Red Blood Count 4.99 mil/mm3 (4.50-5.90); Red Cell Distribution Width 13.8 % (11.6-17.2); White Blood Count 9.1 th/mm3 (4.0-11.0)
[2018-04-24 10:13] LABS: Activated Partial Thrombo Time 24.8 sec (23.4-31.7); Prothrombin Time 10.4 sec (9.8-11.6)
--- NOTE | 2018-04-24 10:13 | CT ---
EXAM DATE: 04/24/2018 10:06 AM EST AGE/SEX: 83 years / Male INDICATIONS: Trauma. Fall with loss of consciousness. CLINICAL DATA: This is the patient's initial encounter. Patient reports that signs and symptoms have been present for 1 day and indicates a pain score of 8/10. MEDICAL/SURGICAL HISTORY: Chronic obstructive pulmonary disease. Hypertension. None. RADIATION DOSE: 56.35 CTDI (mGy) COMPARISON: [facility], CT BRAIN W/O CONTRAST, 04/30/2016. POI, MR BRAIN W/O CONTRAST, 06/03/2017. . TECHNIQUE: CT of the head without contrast. Using automated exposure control and adjustment of the mA and/or kV according to patient size, radiation dose was kept as low as reasonably achievable to ob tain optimal diagnostic quality images. DICOM format image data is available electronically for revi ew and comparison. FINDINGS: Cerebrum: There is acute intraparenchymal hemorrhage within the right temporal subcortical white mat ter. The area of hemorrhage measures 1.9 cm in size. No acute extra-axial bleed is noted. The ventric les, sulci and cisterns are normal. No acute infarct, midline shift or mass effect is noted. Posterior Fossa: The cerebellum and brainstem are intact. The 4th ventricle is midline. The cerebe llopontine angle is unremarkable. Extracranial: The visualized portion of the orbits is intact. Soft tissue swelling is noted anterio r to the left zygoma and extending into the preseptal soft tissues on the left as well as inferiorly in the region of the left cheek. Skull: The calvaria is intact. There is evidence of acute fractures involving the anterior and later al montanez of the left maxillary sinus. There is also probable acute fracture involving the left orbita l floor. Orbital emphysema is noted on the left. There is an air-fluid level within the left maxillar y sinus. CONCLUSION: 1. Acute intraparenchymal hemorrhage within the right temporal subcortical white matter. The area of hemorrhage measures 1.9 cm in size. 2. Evidence of acute fractures involving the anterior and lateral montanez of the left maxillary sinus. There is also probable acute fracture involving the left orbital floor. Orbital emphysema is noted o n the left. There is an air-fluid level within the left maxillary sinus. Soft tissue swelling is note d anterior to the left zygoma and extending into the preseptal soft tissues on the left as well as in feriorly in the region of the left cheek. . Electronically signed by: Hipolito Rowe MD Board Certified Radiologist 04/24/2018 10:12 AM EST
--- NOTE | 2018-04-24 10:34 | CT ---
EXAM DATE: 04/24/2018 10:21 AM EST AGE/SEX: 83 years / Male INDICATIONS: Fall. Loss of consciousness. Face and head injury. CLINICAL DATA: This is the patient's initial encounter. Patient reports that signs and symptoms have been present for 1 day and indicates a pain score of 8/10. MEDICAL/SURGICAL HISTORY: Chronic obstructive pulmonary disease. Hypertension. None. None. RADIATION DOSE: 16.91 CTDI (mGy) COMPARISON: No prior exams available for comparison. TECHNIQUE: Contiguous axial images were obtained using helical multirow detector technique. The vol umetric data was post-processed with multiplanar reconstruction in oblique axial, sagittal, and coron al planes. Using automated exposure control and adjustment of the mA and/or kV according to patient s ize, radiation dose was kept as low as reasonably achievable to obtain optimal diagnostic quality zainab ges. DICOM format image data is available electronically for review and comparison. FINDINGS: Vertebrae: Normal vertebral body height. Alignment: Normal. No subluxation. C2-3: The bony spinal canal is normal in size. No evidence of disc bulge or herniation. The neural foramina are bilaterally patent. C3-4: Mild uncinate ridging with mild spinal stenosis and minimal bilateral neural foraminal encroac hment. C4-5: Moderate uncinate ridging slightly worse on the left with minimal left-sided neural foraminal encroachment. C5-6: Moderate uncinate ridging with bilateral minimal neural foraminal encroachment and moderate sp inal stenosis C6-7: Uncinate ridging with minimal bilateral neural foraminal encroachment. There is no significant spinal stenosis. C7-T1: The bony spinal canal is normal in size. No evidence of disc bulge or herniation. The neura l foramina are bilaterally patent. Apical blebs worse on the right CONCLUSION: 1. Degenerative changes with uncinate ridging. No fracture. Electronically signed by: Michael Eugene MD Board Certified Radiologist 04/24/2018 10:33 AM EST
[2018-04-24] MEDS ORDERED: Tetanus/Diphtheria Toxoid Adult Vaccine Inj 0.5 ML Vial IM ONE (10:36)
[2018-04-24 10:39] LABS: Albumin 4.1 g/dL (3.4-5.0); Anion Gap 7 meq/L (5-15); Aspartate Aminotransferase 30 U/L (15-37); Blood Urea Nitrogen 15 mg/dL (7-18); Calcium 9.3 mg/dL (8.5-10.1); Carbon Dioxide 29.7 meq/L (21.0-32.0); Chloride 101 meq/L (98-107); Glomerular Filtration Rate 51 mL/min (>89); Glucose,Random 131 mg/dL (74-106); Sodium 138 meq/L (136-145)
[2018-04-24 10:41] LABS: Potassium 4.9 meq/L (3.5-5.1)
--- NOTE | 2018-04-24 10:41 | CT ---
EXAM DATE: 04/24/2018 10:21 AM EST AGE/SEX: 83 years / Male INDICATIONS: Fall. Head and face injury. Loss of consciousness. CLINICAL DATA: This is the patient's initial encounter. Patient reports that signs and symptoms have been present for 1 day and indicates a pain score of 8/10. MEDICAL/SURGICAL HISTORY: Chronic obstructive pulmonary disease. Hypertension. None. RADIATION DOSE: 21.96 CTDI (mGy) COMPARISON: No prior exams available for comparison. TECHNIQUE: Contiguous images in the axial and coronal planes were obtained using helical multirow de tector technique. Using automated exposure control and adjustment of the mA and/or kV according to p atient size, radiation dose was kept as low as reasonably achievable to obtain optimal diagnostic geneva lity images. DICOM format image data is available electronically for review and comparison. FINDINGS: There is a fracture of the left infraorbital rim and a lateral wall of the left maxillary sinus. Ther e is significant depression of the malar eminence and lateral wall of the left maxillary sinus. Orbit al emphysema is present. The mandible and maxilla are intact. Septum is midline. The right side of the face is unremarkable. CONCLUSION: 1. Tripod fracture with significant depression malar eminence with buckling of the lateral wall of t he left maxillary sinus. 2. Nondisplaced fracture of the left inferior orbital rim. 3. Medial left orbital rim intact. Electronically signed by: Michael Eugene MD Board Certified Radiologist 04/24/2018 10:40 AM EST
[2018-04-24 10:42] LABS: Alanine Aminotransferase 24 U/L (12-78); Alkaline Phosphatase 75 U/L (45-117); Total Protein 7.8 g/dL (6.4-8.2)
[2018-04-24] MEDS ORDERED: levETIRAcetam 1000mg/100mL Inj 100 ML IV.SIG ONE (10:58)
--- NOTE | 2018-04-24 12:13 | ED ---
HPI General Chief Complaint: Syncope Stated Complaint: Poss Syncope/Fall Complaint Time Seen by Provider: 04/24/18 09:17 History of Present Illness HPI Narrative: This is an 83-year-old male with a history of pacemaker, coronary artery disease, hypertension, who presents today after mechanical fall and striking his face. Patient. The patient reports he tripped over something and fell onto his face. According to the paramedics when he went to get up, he had a syncopal episode. The patient does not recall the event. The patient has ecchymosis and abrasions to his left forehead and face. He denies any neck pain. He does report face and head pain. There are no other reported injuries. The patient reports that he is not currently taking blood thinners. Related Data Home Medications Medication Instructions Recorded Confirmed amlodipine 10 mg PO DAILY 01/09/18 04/24/18 ipratropium-albuterol [Combivent 1 puff INHALATION Q6H 01/09/18 04/24/18 Respimat] metoprolol tartrate 12.5 mg PO BID 04/24/18 04/24/18 Allergies Allergy/AdvReac Type Severity Reaction Status Date / Time amoxicillin Allergy Severe DONT Verified 04/24/18 09:08 REMEMBER clavulanic acid Allergy Severe DONT Verified 04/24/18 09:08 REMEMBER penicillin G Allergy Severe HIVES Verified 04/24/18 09:08 prednisone Allergy Severe IMPENDING Verified 04/24/18 09:08 DOOM simvastatin Allergy Severe CAN'T Verified 04/24/18 09:08 REMEMBER tiotropium Allergy Severe CAN'T Verified 04/24/18 09:08 REMEMBER Review of Systems ROS: all other systems reviewed are negative Constitutional Reports system reviewed and no additional complaints, except as docu Eyes Denies loss of vision and Reports eye pain (Left periorbital pain.) ENT Reports facial pain (Left forehead and left cheek and left lip), Reports lip swelling (And abrasion left side.), Reports sinus pressure (Left maxillary) and Reports other (Nasal pain) Cardiovascular Denies chest pain, Denies diaphoresis and Denies dyspnea Respiratory Denies chest congestion, Denies cough and Denies dyspnea Gastrointestinal Denies abdominal pain, Denies nausea and Denies vomiting Genitourinary Reports system reviewed and no additional complaints, except as docu Musculoskeletal Reports other (Denies extremity pain.) Integumentary/Breasts Reports other Neurologic Reports confusion (Mild), Denies dizziness, Reports syncope and Denies sensory deficit [facility] Medical History Medical History Pacemaker (Acute) Syncope (Acute) COPD (chronic obstructive pulmonary disease) (Acute) HLD (hyperlipidemia) (Acute) HTN (hypertension) (Acute) Hyperchloremia (Acute) Social History Social History Substance History: No History of Abuse Second Hand Smoke Exposure: No Smoking Status: Former smoker How Often Do You Have a Drink Containing Alcohol: Monthly or less Recent Travel in [facility] within the Last 8 Weeks: No Recent Out of Country Travel within the Last 8 Weeks: No Immunization History Tetanus Immunization: Unsure Exam Narrative Exam Narrative: GENERAL: Well-developed well-nourished male with obvious abrasions to face and forehead on the left side. SKIN: Focused skin assessment warm/dry. HEAD: Atraumatic. Normocephalic. EYES: Extraocular muscles appeared intact. Pupils were reactive bilaterally. The patient has periorbital ecchymosis to the left eye. ENT: Abrasion to the left upper lip. There is also a small punctate laceration on the left inner upper lip. There is swelling and abrasion to the left cheek above the maxillary sinus. NECK: Trachea midline. Supple. No posterior spinous process tenderness. CARDIOVASCULAR: Regular rate and rhythm. No murmur appreciated. RESPIRATORY: No accessory muscle use. Clear to auscultation. Breath sounds equal bilaterally. GASTROINTESTINAL: Abdomen soft, non-tender, nondistended. Hepatic and splenic margins not palpable. MUSCULOSKELETAL: No obvious deformities. No clubbing. No cyanosis. No edema. NEUROLOGICAL: Awake and alert. No obvious cranial nerve deficits. Motor grossly within normal limits. Normal speech. Course Initial Documented Vital Signs Temperature 98.1 F 04/24/18 09:08 Pulse Rate 78 04/24/18 09:08 Respiratory Rate 14 04/24/18 09:08 Blood Pressure 148/67 H 04/24/18 09:08 Pulse Oximetry 98 04/24/18 09:08 Last Documented Vital Signs Temperature 98.1 F 04/24/18 09:08 Pulse Rate 88 04/24/18 13:16 Respiratory Rate 25 H 04/24/18 13:16 Blood Pressure 173/72 H 04/24/18 13:16 Pulse Oximetry 94 L 04/24/18 13:16 Medical Decision Making MDM Narrative Medical decision making narrative: This is a 83-year-old male with a history of hypertension, coronary artery disease, paced rhythm, presents since today with complaints of facial pain on the left and head pain after mechanical fall. CT cervical spine shows no evidence of acute injury. CT brain shows a 1.9 cm right temporal lobe intraparenchymal hemorrhage. There is also a tripod fracture on the left side. Case was discussed with Dr. Elroy Gil, trauma surgeon who agreed to admit the patient to his service. I also discussed the case with Dr. Esquivel, neurosurgeon and allen Guardado of facial surgeon. They will both see the patient in consultation. Dr. Esquivel requested to load the patient with 1 g of Keppra and then change it to 500 mg twice daily. He also recommended a repeat CT scan tomorrow morning. Medical Screen Exam Complete: Yes Emergency Medical Condition: Yes Differential Diagnosis Differential Diagnosis: Facial fracture versus intracranial injury versus metabolic derangement Lab Data Result diagrams: 04/24/18 09:30 04/24/18 09:30 Lab Results 04/24/18 04/24/18 04/24/18 Range/Units 09:30 09:30 09:30 WBC 9.1 (4.0-11.0) th/mm3 RBC 4.99 (4.50-5.90) mil/mm3 Hgb 16.1 (13.0-17.0) gm/dL Hct 45.8 (39.0-51.0) % MCV 91.9 (80.0-100.0) fL MCH 32.2 (27.0-34.0) pg MCHC 35.0 (32.0-36.0) % RDW 13.8 (11.6-17.2) % Plt Count 183 (150-450) th/mm3 MPV 7.2 (7.0-11.0) fL Neut % (Auto) 88.0 H (16.0-70.0) % Lymph % (Auto) 7.0 L (9.0-44.0) % Owen % (Auto) 4.6 (0.0-8.0) % Eos % (Auto) 0.1 (0.0-4.0) % Baso % (Auto) 0.3 (0.0-2.0) % Neut # (Auto) 8.0 H (1.8-7.7) th/mm3 Lymph # (Auto) 0.6 L (1.0-4.8) th/mm3 Owen # (Auto) 0.4 (0.0-0.9) th/mm3 Eos # (Auto) 0.0 (0.0-0.4) th/mm3 Baso # (Auto) 0.0 (0.0-0.2) th/mm3 WBC Differential . Differential Comment Auto diff final PT 10.4 (9.8-11.6) sec INR 1.0 Ratio APTT 24.8 (23.4-31.7) sec Sodium 138 (136-145) meq/L Potassium 4.9 (3.5-5.1) meq/L Chloride 101 (98-107) meq/L Carbon Dioxide 29.7 (21.0-32.0) meq/L Anion Gap 7 (5-15) meq/L BUN 15 (7-18) mg/dL Creatinine 1.33 H (0.60-1.30) mg/dL Estimated GFR 51 L (>89) mL/min Random Glucose 131 H (74-106) mg/dL Calcium 9.3 (8.5-10.1) mg/dL Total Bilirubin 0.6 (0.2-1.0) mg/dL AST 30 (15-37) U/L ALT 24 (12-78) U/L Alkaline Phosphatase 75 (45-117) U/L Troponin I Less than 0.02 L (0.02-0.05) ng/mL Total Protein 7.8 (6.4-8.2) g/dL Albumin 4.1 (3.4-5.0) g/dL Imaging Data Radiologist's impression: Chest X-Ray 04/24/18 00:00 CONCLUSION: Mild right basilar streakiness consistent with possible atelectasis and/or developing infiltrate. Clinical correlation is recommended. Cervical Spine CT 04/24/18 09:31 CONCLUSION: 1. Degenerative changes with uncinate ridging. No fracture. Face CT 04/24/18 09:31 CONCLUSION: 1. Tripod fracture with significant depression malar eminence with buckling of the lateral wall of the left maxillary sinus. 2. Nondisplaced fracture of the left inferior orbital rim. 3. Medial left orbital rim intact. Head CT 04/24/18 09:31 CONCLUSION: 1. Acute intraparenchymal hemorrhage within the right temporal subcortical white matter. The area of hemorrhage measures 1.9 cm in size. 2. Evidence of acute fractures involving the anterior and lateral montanez of the left maxillary sinus. There is also probable acute fracture involving the left orbital floor. Orbital emphysema is noted on the left. There is an air-fluid level within the left maxillary sinus. Soft tissue swelling is noted anterior to the left zygoma and extending into the preseptal soft tissues on the left as well as inferiorly in the region of the left cheek. . Discharge Plan Discharge Disposition Patient Disposition: ED Admit(ED Internal Use Only) Discharge Order Discharge Orders: ED Use Only Admit Order (Routine); Ordered 04/24/18 Ordered By: Chas Wagner Discharge Details Diagnosis: Hemorrhage of right temporal lobe, Closed fracture of tripod, Fall Physicians Team ED Provider: Chas Wagner Primary Care Provider: Christian Rodrigues Attending Provider: Elroy Gil Other Providers: River Esquivel Discharge Interventions Interventions: Vital Signs Last Done: 04/24/18 13:16 Status ED Status: Admitted Patient
[2018-04-24] MEDS ORDERED: Morphine Sulfate Inj 2 MG/ML Vial IV.PUSH PRN ×2 (12:14→17:41)
--- NOTE | 2018-04-24 13:22 | XR ---
EXAM DATE: 04/24/2018 1:14 PM EST AGE/SEX: 83 years / Male INDICATIONS: Fall with possible syncope. CLINICAL DATA: This is the patient's initial encounter. Patient reports that signs and symptoms have been present for 2 days and indicates a pain score of 0/10. MEDICAL/SURGICAL HISTORY: Chronic obstructive pulmonary disease. None. COMPARISON: [facility], CHEST SINGLE AP, 04/30/2016. . FINDINGS: Mild right basilar streakiness is noted consistent with possible atelectasis and/or developing infilt rate. Clinical correlation is recommended. The heart is normal. The pulmonary vascular pattern is nor mal. Underlying scattered emphysematous changes are likely. CONCLUSION: Mild right basilar streakiness consistent with possible atelectasis and/or developing infiltrate. Cli nical correlation is recommended. Electronically signed by: Hipolito Rowe MD Board Certified Radiologist 04/24/2018 1:21 PM EST
[2018-04-24] MEDS: Docusate Sodium 100 MG Capsule PO SCH ×2 (13:31→21:04)
[2018-04-24] MEDS: Pantoprazole Inj 40 MG Vial IV.PUSH SCH (14:18)
[2018-04-24] MEDS: Sod Chloride 0.9% Inj 1,000 ML IV.CONT SCH ×2 (14:18→21:01)
--- NOTE | 2018-04-24 15:19 | P.CONNS ---
History of Present Illness Service: Trauma/ED Primary Care Provider: Christian Rodrigues MD History of Present Illness: 83yoM tripped and fell (or syncopized-- has been having a lot of syncope lately ) struck and hit his head with +LOC. On daily ASA, no other thinners. Has facial bruising and a right temporal IPH 1.9cm, but neurologically intact, and tells a good story. No neck pain. [facility] - History History Provided By: Patient - Medical History Medical History: Medical History (Last Updated 04/24/18 @ 09:11 by Jenny Temple) Pacemaker Syncope COPD (chronic obstructive pulmonary disease) HLD (hyperlipidemia) HTN (hypertension) Hyperchloremia - Tobacco History Second Hand Smoke Exposure: No Smoking Status: Former smoker - Alcohol History How Often Do You Have a Drink Containing Alcohol: Monthly or less - Substance Use History Substance History: No History of Abuse - Travel History Recent Travel in the [place] Within the Last 8 Weeks: No Recent Travel Out of the Country Within the Last 8 Weeks: No - Immunization History Tetanus Immunization: Unsure Medications and Allergies Active Medications: Active Medications Hydrocodone Bitart/Acetaminophen (Jud 5/325) 2 tab PO Q4H PRN PRN Reason: Pain 6 - 10 Bacitracin (Baciguent Oint) 1 applicatio TOPICAL BID [facility] Last Admin: 04/24/18 14:18 Dose: 1 applicatio Chlorhexidine Gluconate (Chlorhexidine 2% Cloth) 3 pack TOPICAL DAILY@0400 [facility] Stop: 04/30/18 03:59 Chlorhexidine Gluconate (Chlorhexidine 2% Cloth) 3 pack TOPICAL DAILY@0400 PRN PRN Reason: Extra cloth needed Stop: 04/30/18 03:59 Docusate Sodium (Colace) 100 mg PO BID [facility] Last Admin: 04/24/18 13:31 Dose: Not Given Enalaprilat (Vasotec Inj) 1.25 mg IV.PUSH Q8H PRN PRN Reason: Blood pressure 180/95 Sodium Chloride (Ns Inj) 1,000 mls @ 100 mls/hr IV.CONT .Q10H [facility] Last Admin: 04/24/18 14:18 Dose: 100 mls/hr Morphine Sulfate (Morphine Inj) 2 mg IV.PUSH Q1H PRN PRN Reason: Break through pain Ondansetron HCl (Zofran Inj) 4 mg IV.PUSH Q6H PRN PRN Reason: NAUSEA OR VOMITING Pantoprazole Sodium (Protonix Inj) 40 mg IV.PUSH Q24H MIN Last Admin: 04/24/18 14:18 Dose: 40 mg Sodium Chloride (Ns Flush) 2 ml IV.FLUSH UNSCH PRN PRN Reason: FLUSH AFTER USING IV ACCESS Allergies Allergy/AdvReac Type Severity Reaction Status Date / Time amoxicillin Allergy Severe DONT Verified 04/24/18 09:08 REMEMBER clavulanic acid Allergy Severe DONT Verified 04/24/18 09:08 REMEMBER penicillin G Allergy Severe HIVES Verified 04/24/18 09:08 prednisone Allergy Severe IMPENDING Verified 04/24/18 09:08 DOOM simvastatin Allergy Severe CAN'T Verified 04/24/18 09:08 REMEMBER tiotropium Allergy Severe CAN'T Verified 04/24/18 09:08 REMEMBER Home Medications Medication Instructions Recorded Confirmed Type amlodipine 10 mg PO DAILY 01/09/18 04/24/18 History ipratropium-albuterol [Combivent 1 puff INHALATION Q6H 01/09/18 04/24/18 History Respimat] metoprolol tartrate 12.5 mg PO BID 04/24/18 04/24/18 History Exam Vital signs: Vital Signs 04/24/18 09:08 04/24/18 09:13 04/24/18 09:54 Temperature 98.1 F Pulse Rate 78 86 Respiratory Rate 14 16 Blood Pressure 148/67 H 196/74 H Pulse Oximetry 98 95 95 04/24/18 13:16 Temperature Pulse Rate 88 Respiratory Rate 25 H Blood Pressure 173/72 H Pulse Oximetry 94 L Intake & Output 04/23/18 04/24/18 04/24/18 18:59 06:59 18:59 Intake Total 100 / 100 Output Total 400 / 400 Balance -300 / -300 Weight 77.564 kg Intake: IV 100 / 100 Keppra 1000 mg/100 mL Premix 100 / 100 100 ML @ 400 mls/hr IV.SIG ONCE ONE Rx#:[id number] Output: Urine 400 / 400 Narrative: A&O x 3 CN II-XII intact Motor 5/5 UE/LE Reflexes symmetric physiologic Bruising left side of face Results - Laboratory Findings CBC and BMP: 04/24/18 09:30 04/24/18 09:30 Abnormal lab findings: Abnormal Labs 04/24/18 04/24/18 09:30 09:30 Neut % (Auto) 88.0 H Lymph % (Auto) 7.0 L Neut # (Auto) 8.0 H Lymph # (Auto) 0.6 L Creatinine 1.33 H Estimated GFR 51 L Random Glucose 131 H Troponin I Less than 0.02 L - Diagnostic Findings Additional findings: CT Head: Right temporal IPH 1.9cm, no mass effect CT C-spine negative Assessment and Plan - Plan 83yoM fall with facial trauma, right temporal intraparenchymal hemorrhage, GCS 15, +LOC. Keppra 1gm load then 500mg BID x 7d Repeat CT in AM Neuro checks overnight Appreciate trauma and max-face evals Consider syncope workup as it appears to be frequent Mobilize, act as tolerated, pt/ot
--- NOTE | 2018-04-24 18:40 | MH ---
cc: Elroy Gil MD DATE OF ADMISSION: 04/24/2018 CHIEF COMPLAINT: Syncope/fall on concrete, intracranial hemorrhage, facial fractures. HISTORY OF PRESENT ILLNESS: The patient is an 83-year-old male with multiple medical issues who presented status post fall. The patient was down for an unknown period of time. Positive loss of consciousness noted. He tripped over something and fell onto his face with significant bruising to the left side of face and concern for a syncopal episode. The patient was hemodynamically stable on arrival. GCS of 15, minimal dementia and confusion, and noted to be following commands appropriately. He had further workup including a CT scan showing right temporal intracranial hemorrhage and facial fractures of the left orbit. Primary and secondary surveys were done for evaluation. PAST MEDICAL HISTORY: COPD, hypercholesterolemia, hypertension, pacemaker, hyperlipidemia, syncope. PAST SURGICAL HISTORY: Pacer. SOCIAL HISTORY: History of smoking. He denies current smoking, ETOH, or IVDA. ALLERGIES: AMOXICILLIN, CLAVULANIC ACID, PENICILLIN, PREDNISONE. FAMILY HISTORY: Denies diabetes or hypertension. MEDICATIONS: See EMR. REVIEW OF SYSTEMS: General review of systems 12-point was done. Otherwise negative except as above. PHYSICAL EXAMINATION: GENERAL: No acute distress. VITAL SIGNS: Temperature 98.1, pulse 88, respirations 25, blood pressure 173/72, saturation 94%. HEENT: Pupils equal, round, and reactive. Left-sided bruising, ecchymosis, swollen left eye. NECK: Supple. Trachea midline. Clavicles nontender. LUNGS: Clear to auscultation, bilateral expansion. HEART: S1, S2. Pacer present. ABDOMEN: Soft, nontender, nondistended. EXTREMITIES: Warm and well perfused. Minimal abrasions. NEUROLOGIC: GCS 15, dementia, following commands. Gross normal motor and speech. LABORATORY AND DIAGNOSTIC DATA: WBC 9.1, hemoglobin 16.1, hematocrit 45.8, platelets 183. Sodium 138, potassium 4.9, chloride 101, BUN 15, creatinine 1.3. AST 30, ALT 24. Troponin 0.2. CT is reviewed by myself showing chest x-ray, basilar streakiness, atelectasis. CT head: A 1.9 cm right temporal subcortical hemorrhage. Fracture, lateral wall of maxillary sinus, left orbital floor. Swelling, left cheek. CT face as above. CT C-spine: No evidence of fracture. ASSESSMENT: The patient is an 83-year-old, status post fall, presents with parenchymal hemorrhage, facial fractures, syncope. PLAN: After full workup, patient noted with the above-named issues. At this point, the patient will be admitted to ICU for close observation. We will consult neurosurgery, plastic surgery, and consider ophthalmology consultation. Discussed with Dr. Naik, with ICU attending for further management. The patient will be n.p.o., IV fluids, pain control. We will continue to monitor for ongoing injuries. Discussed with the patient in detail. MD KAMALJIT Helm/hank , 06:12 PM , 06:21 PM
--- NOTE | 2018-04-24 20:28 | US ---
EXAM DATE: 04/24/2018 8:26 PM EST AGE/SEX: 83 years / Male INDICATIONS: Syncope. CLINICAL DATA: This is the patient's initial encounter. Patient reports that signs and symptoms have been present for 1 day and indicates a pain score of 0/10. MEDICAL/SURGICAL HISTORY: Chronic obstructive pulmonary disease. Hypertension. Hyperlipidemia. None. COMPAR[place]: [facility] [place] CAROTID [place]ER[place] 04/[place]/2017. . VELOCITY PARAMETERS: ICA/CCA Ratio: Right 0.9 , Left 1.0 ICA: Right 94 cm/sec, Left 94 cm/sec CCA: Right 105 cm/sec, Left 95 cm/sec ECA: Right 134 cm/sec, Left 115 cm/sec Vertebral: Right 37 cm/sec antegrade, Left 52 cm/sec antegrade FINDINGS: Right Carotid: Mild atherosclerotic plaque is visualized.The waveforms are within normal limits. Left Carotid: Mild arteriosclerotic plaque is visualized. The waveforms are within normal limits. Other: None. CONCLUSION: 1. Right Internal Carotid Artery: Findings indicate <50% stenosis. 2. Left Internal Carotid Artery: Findings indicate <50% stenosis. Electronically signed by: David Betancourt MD Board Certified Radiologist 04/24/2018 8:27 PM ISAEL Chung
[2018-04-24] MEDS: Metoprolol Tartrate 25 MG Tablet PO SCH (21:03)
--- NOTE | 2018-04-24 21:29 | MB ---
cc: Josiah Riddle DMD Josiah Riddle DMD DATE: 04/24/2018 REASON FOR CONSULTATION: Facial fractures. HISTORY OF PRESENT ILLNESS: I have seen and examined Mr. Fragoso this evening. He is a pleasant 83-year-old male who is status post fall yesterday. He told me that he came to the hospital because his made him. At present, he is awake, alert, and oriented x3, in no acute distress. Denies any facial pain at this time or any vision problems. Denies any neck problems. Denies any fever, chills, nausea, vomiting, any shortness of breath or difficulty speaking or swallowing. Reports some soreness over the left side of the face upon into his cheek bone. PAST MEDICAL HISTORY: High blood pressure, hyperlipidemia, pacemaker, COPD, high cholesterol, and syncopal episode. PAST SURGICAL HISTORY: Reports having a pacemaker. SOCIAL HISTORY: He has not smoked for 20 years. Denies any alcohol or any drug abuse history. ALLERGIES: 1. PENICILLIN. 2. PREDNISONE. 3. AMOXICILLIN. 4. AUGMENTIN. MEDICATIONS: As per list. PHYSICAL EXAMINATION: VITAL SIGNS: Temperature 98.6, pulse is 81, respiratory rate 29, blood pressure is 144/60, oxygen saturation 93. HEENT: The patient wears glasses. Pupils are equal, round, reactive to light and accommodation. Extraocular movements are intact. Eyes are wide open. Denies any blurry vision, any double vision. Positive good visual acuity. Eyes: His vision is better when he wears his glasses. He has got bruising on his left periorbital region, left malar region, left side of the face greater than on the right side of the face. Abrasions on his face down to his chin and on his dorsum of his nose, on the forehead. All hemostatic. Facial bones have been palpated, tenderness over the left malar region. There is some edema that I could see that there is a depression on the left side of his face. Positive range of movement of the neck. Left-sided V2 sensation different as compared to the right side. Intraorally, multiple poor dentition that is noted. Bite is in occlusion. Mild tenderness in the left maxillary vestibule region. Tissue is pink and healthy. There is no active heme from his nose or in his mouth anywhere. LABORATORY DATA: CT scan of the facial bones shows a left maxillary sinus fracture with depression of his left zygoma plus malar region. There is a crack that is not significantly displaced left infraorbital rim fracture. Tenderness to palpation of left infraorbital rim, mild, but no gross disruption of the alignment of the rim on the left side as far as I could see clinically. The ZF suture line is not significantly depressed. No gross herniation of any gross orbital contact or muscle content that I could see. Air-fluid levels in left maxillary sinus. White count is 9.1 with H and H of 16.1 and 45.8 with platelets of 183. PT 7.5, INR 1.0, with a PTT of 24.8. IMPRESSION AND PLAN: This is a pleasant 83-year-old male status post fall, history of loss of consciousness who now presents with a left-sided zygomaticomaxillary complex fracture, specifically the left zygoma/region of the buttress into the left maxillary sinus, which is displaced radiographically and noted clinically also. Also, a nondisplaced left infraorbital rim fracture. He also has an intraparenchymal hemorrhage with the right temporal subcortical white matter. The area of the hemorrhage is about 1.9 cm. The plan is for when this patient is stable neurologically to do the main operating for open reduction internal fixation of his left zygomaticomaxillary complex suture so that we can stabilize his cheek bone. Benefits, risks, indications for the procedure, procedure in detail, and options of no treatment including alternatives were discussed with this patient. Risks not limited to any postop pain, infection, bleeding, damage to the adjacent soft tissue or hard tissue, anesthesia complications, including secondary to increased age and comorbidities, malunion or nonunion of the fracture sites, continued numbness, further surgeries possibly required. All questions and concerns were addressed. Josiah Riddle DMD RT/ts , 08:44 PM , 08:55 PM
[2018-04-25] MEDS: Sod Chloride 0.9% Inj 1,000 ML IV.CONT SCH ×4 (01:01→21:30)
[2018-04-25] MEDS: Chlorhexidine Gluconate 2% 1 Pack (2 Cloths) TOPICAL SCH (03:02)
[2018-04-25] MEDS ORDERED: Chlorhexidine Gluconate 2% 1 Pack (2 Cloths) TOPICAL PRN (04:00)
[2018-04-25 04:48] LABS: Baso % (Auto) 0.5 % (0.0-2.0); Eos % (Auto) 0.5 % (0.0-4.0); Hematocrit 40.6 % (39.0-51.0); Lymph # (Auto) 1.3 th/mm3 (1.0-4.8); Lymph % (Auto) 17.8 % (9.0-44.0); Mean Corpuscular HGB Conc 34.4 % (32.0-36.0); Mean Corpuscular Hemoglobin 31.6 pg (27.0-34.0); Mean Corpuscular Volume 91.9 fL (80.0-100.0); Mean Platelet Volume 6.8 fL (7.0-11.0); Mono # (Auto) 0.7 th/mm3 (0.0-0.9); Neut % (Auto) 71.2 % (16.0-70.0); Platelet Count 169 th/mm3 (150-450); Red Blood Count 4.42 mil/mm3 (4.50-5.90)
[2018-04-25 05:19] LABS: Calcium 8.6 mg/dL (8.5-10.1); Carbon Dioxide 29.4 meq/L (21.0-32.0); Potassium 4.1 meq/L (3.5-5.1)
[2018-04-25] MEDS: Docusate Sodium 100 MG Capsule PO SCH ×2 (08:00→20:14)
[2018-04-25] MEDS: Tiotropium Bromide 18 MCG/ACT Inhaler INH SCH ×2 (08:26→09:05)
[2018-04-25] MEDS: amLODIPine 5 MG Tablet PO SCH (08:26)
[2018-04-25] MEDS: Metoprolol Tartrate 25 MG Tablet PO SCH ×2 (08:27→20:12)
--- NOTE | 2018-04-25 11:02 | P.PNNS ---
Subjective Interval history: Doing well overnight Physical Exam Vital signs: Vital Signs 04/24/18 13:16 04/24/18 14:45 04/24/18 16:55 Temperature 98.6 F Pulse Rate 88 84 83 Respiratory Rate 25 H 16 33 H Blood Pressure 173/72 H 148/66 H 142/65 H Pulse Oximetry 94 L 93 L 92 L 04/24/18 17:00 04/24/18 19:00 04/24/18 20:00 Temperature Pulse Rate 81 75 74 Respiratory Rate 29 H 19 38 H Blood Pressure 144/65 H 151/67 H 152/68 H Pulse Oximetry 93 L 94 L 95 04/24/18 22:00 04/24/18 23:00 04/25/18 00:00 Temperature Pulse Rate 57 L 55 L 57 L Respiratory Rate 39 H 35 H 20 Blood Pressure 136/65 140/64 152/63 H Pulse Oximetry 98 98 98 04/25/18 01:00 04/25/18 02:00 04/25/18 04:00 Temperature Pulse Rate 56 L 60 67 Respiratory Rate 19 29 H 16 Blood Pressure 152/66 H 121/60 133/61 Pulse Oximetry 98 98 100 04/25/18 06:00 04/25/18 07:00 04/25/18 08:00 Temperature 98.1 F Pulse Rate 54 L 58 L 52 L Respiratory Rate 18 18 Blood Pressure 136/63 138/62 Pulse Oximetry 100 95 04/25/18 08:40 04/25/18 08:44 04/25/18 08:52 Temperature Pulse Rate 66 Respiratory Rate 37 H Blood Pressure 158/69 H Pulse Oximetry 100 04/25/18 09:00 Temperature Pulse Rate 72 Respiratory Rate 38 H Blood Pressure 169/69 H Pulse Oximetry 98 Intake & Output 04/24/18 04/25/18 04/25/18 18:59 06:59 18:59 Intake Total 100 / 100 910 / 910 1000 / 1000 Output Total 400 / 400 Balance -300 / -300 910 / 910 1000 / 1000 Weight 77.564 kg 72.3 kg Intake: IV 100 / 100 910 / 910 1000 / 1000 NS Inj 1,000 ML @ 100 mls/hr IV 700 / 700 1000 / 1000 .CONT .Q10H [facility] Rx#:[id number] Keppra 1000 mg/100 mL Premix 100 / 100 100 ML @ 400 mls/hr IV.SIG ONCE ONE Rx#:[id number] Keppra Inj 500 MG In NS Inj 100 210 / 210 ML @ 400 mls/hr IV.SIG Q12H [facility] Rx#:[id number] Output: Urine 400 / 400 Narrative: A&O x 3 CN II-XII intact Motor 5/5 UE/LE Reflexes symmetric physiologic Bruising left side of face Assessment and Plan - Plan 83yoM fall with facial trauma, right temporal intraparenchymal hemorrhage, GCS 15, +LOC. Keppra 1gm load then 500mg BID x 7d Repeat CT in AM Neuro checks overnight Appreciate trauma and max-face evals Consider syncope workup as it appears to be frequent Mobilize, act as tolerated, pt/ot 04/25/18 Cleared from neurosurgical point of view for diet and any facial repair surgery (?tomorrow). Continue Keppra x 1 week. OOB and activity as tolerated
--- NOTE | 2018-04-25 11:44 | CT ---
EXAM DATE: 04/25/2018 11:26 AM EST AGE/SEX: 83 years / Male INDICATIONS: Abnormal prior imaging. CLINICAL DATA: This is the patient's subsequent encounter. Patient reports that signs and symptoms h ave been present for 1 day and indicates a pain score of 7/10. MEDICAL/SURGICAL HISTORY: Chronic obstructive pulmonary disease. Hypertension. None. RADIATION DOSE: 50.97 CTDI (mGy) [place] [facility] [place]. . TECHNIQUE: CT of the head without contrast. Using automated exposure control and adjustment of the mA and/or kV according to patient size, radiation dose was kept as low as reasonably achievable to ob tain optimal diagnostic quality images. DICOM format image data is available electronically for revi ew and comparison. FINDINGS: Cerebrum: Again noted is persistent focal hemorrhage within the mid right temporal lobe. This appear s slightly less prominent on current exam. New areas of hemorrhage are not seen. There are some expan ramiro of the extra axial spaces over the frontal lobes. There is mild widening of the cortical sulci. The ventricles are normal for age. No evidence of midline shift, mass lesion, or acute infarction. Posterior Fossa: The cerebellum and brainstem are intact. The 4th ventricle is midline. The cerebe llopontine angle is unremarkable. Extracranial: Again noted is fracturing at the left maxilla, left zygomatic arch and presumably the left orbital floor. There is air seen in the left orbit. Skull: The calvaria is intact. No evidence of skull fracture. CONCLUSION: 1. Persistent small area of hemorrhage in the right temporal lobe. This appears to be evolving and s lightly smaller on the current exam. New areas of hemorrhage are not seen. 2. Atrophy with some expansion of the extra axial spaces and widening of the cortical sulci. 3. Left maxillary, zygomatic arch and presumably orbital floor fractures. . Electronically signed by: Lazaro Da Silva MD Board Certified Radiologist 04/25/2018 11:42 AM EST
[2018-04-25] MEDS: Pantoprazole Inj 40 MG Vial IV.PUSH SCH (13:20)
[2018-04-25] MEDS: levETIRAcetam 500 MG Tablet PO SCH ×2 (13:20→20:13)
--- NOTE | 2018-04-25 17:31 | MB ---
cc: Aron Candelaria DO DATE: 04/25/2018 REASON FOR CONSULTATION: Possible syncope. HISTORY OF PRESENT ILLNESS: Shaheen Fragoso is a pleasant 83-year-old male who sees my partner Dr. Sosa in the office and presented after a fall. There is a questionable portion of his story where he may have tripped over something and fell onto his face with significant bruising to the left side of his face and concern for a syncopal episode. In speaking to him, he has had multiple episodes of syncope over the past year. He had a loop recorder placed by Dr. Sosa and on this was found to have 6-second pauses. A Micra Medtronic pacemaker was placed, and loop recorder was subsequently removed by Dr. Lara. Since that time, he still had 2 episodes, one in March and this episode this time. He states that he gets a metallic taste in the back of his mouth and smells sulfur as an aura and then he passes out. Per his , there is no clenching of the teeth, shaking, loss of bowel or bladder. He denies any chest pain, shortness of breath, or palpitations. PAST MEDICAL HISTORY: 1. Significant sinus pauses. 2. COPD. 3. Hyperlipidemia. 4. Hypertension. 5. Multiple episodes of syncope over the past year. PAST SURGICAL HISTORY: 1. Placement of loop recorder and subsequent removal due to interference with Micra pacemaker placement. 2. Medtronic Micra pacemaker insertion (01/09/2018, model number [id number], serial number [id number]). ALLERGIES: 1. AMOXICILLIN. 2. PENICILLIN. 3. PREDNISONE. 4. ZOCOR. 5. TIOTROPIUM. MEDICATIONS: 1. Combivent. 2. Norvasc 10 mg daily. 3. Metoprolol tartrate 12.5 mg b.i.d. FAMILY HISTORY: Denies premature coronary artery disease or sudden cardiac within the family. SOCIAL HISTORY: The patient quit smoking greater than 20 years ago. Denies alcohol or drug abuse. REVIEW OF SYSTEMS: Fourteen systems were reviewed including osteopathic. Pertinent positives and negatives above, otherwise negative. PHYSICAL EXAMINATION: VITAL SIGNS: Temperature 98.0, heart rate 63, blood pressure 129/52, respirations 20, pulse oximetry 97% on 2 L. GENERAL: The patient is in no acute distress. Alert, awake and oriented x3. HEENT: He has bruising and abrasions across the left side of his face. Mucous membranes moist. NECK: Supple. No JVD at 45 degrees. No carotid bruits heard bilaterally. Carotid upstroke is brisk in nature. HEART: Regular rate and rhythm. Positive first and second heart tones with no noted murmurs, gallops, or rubs. LUNGS: Clear to auscultation bilaterally. No wheezes, rales, or rhonchi. ABDOMEN: Soft, nontender, nondistended. No organomegaly noted. EXTREMITIES: No clubbing, cyanosis, or edema. Femoral and distal pulses are intact bilaterally. NEUROLOGIC: No focal deficits. SKIN: Warm, dry, and intact. OSTEOPATHIC: No kyphoscoliosis, lordosis, or paraspinal tender points. LABORATORY DATA: Hemoglobin 14.0, hematocrit 40.6, platelets 169. Potassium 4.1, BUN 13, creatinine 1.12. Troponin less than 0.02. Electrocardiogram (04/24/2018 at 0910): Sinus rhythm. Poor R-wave progression. No acute ST-T wave changes. IMPRESSION: 1. Multiple syncopal episodes. 2. Right temporal intraparenchymal hemorrhage. 3. Left-sided zygomaticomaxillary complex fracture as well as a nondisplaced left infraorbital rim fracture. 4. Previous sinus pauses, status post Micra pacemaker placement. RECOMMENDATIONS: 1. Mr. Fragoso has had multiple syncopal episodes over the past year and from a cardiovascular standpoint was found to have sinus pauses. A Micra pacemaker placement was done by Dr. Lara, and since that time, the episodes have decreased. 2. Unfortunately, interrogation of a Micra pacemaker does not show arrhythmias but only percents of pacing, and so no arrhythmias can be taken from this. 3. Also, he had to have his loop recorder removed as there was interference with the Micra pacemaker. Unfortunately, we cannot place another loop recorder as it would interfere with it. 4. In discussing with him, it appears that he gets a metallic taste in his mouth and smells sulfur right before these episodes happen. He has less than a second or two before he passes out at that time. These are concerning for possible seizure-like activity, even though he has no classic symptoms of seizure including convulsions, clenching of his teeth, or loss of bowel or bladder. I have asked neurology to evaluate the patient for their consideration of seizure workup. 5. Further recommendations will be made based on hospital course. Thank you for allowing me to see Shaheen Richmond. If there are any questions, please do not hesitate to call. DO PARIS RuizP/rm , 04:46 PM , 04:58 PM
--- NOTE | 2018-04-25 17:47 | P.PNCC ---
Subjective Brief History: The patient is an 83-year-old male with multiple medical issues who presented status post fall. The patient was down for an unknown period of time. Positive loss of consciousness noted. He tripped over something and fell onto his face with significant bruising to the left side of face and concern for a syncopal episode. The patient was hemodynamically stable on arrival. GCS of 15, minimal dementia and confusion, and noted to be following commands appropriately. He had further workup including a CT scan showing right temporal intracranial hemorrhage and facial fractures of the left orbit. 24 Hour Review/Hospital Course: 04/25/2018 Patient status post fall and syncopal episode Patient is awake alert and oriented Neurologically is fully intact and right temporal intraparenchymal cerebral contusion is stable Facial fractures were evaluated by Dr. Riddle and surgical reconstruction is recommended but patient refuses this Hemodynamically patient is stable at this point Bilateral breath sounds Abdomen soft active bowel sounds Extremities normal and renal function preserved Patient can transfer this point to the floor He will require syncopal workup considering that he has a pacemaker and had about 5 falls in a very short period of time at which point he loses consciousness. If he had the pacemaker placed for sick sinus syndrome and now he is having syncopal episodes that may be related to improper function of the pacemaker or some other underlying issue, like previous unrecognized seizures Carotid ultrasound reveals mild bilateral carotid stenosis and that should be a problem Patient will have CTA of the brain or MRI and will see which way this goes Objective Vital Signs / I&O: Vital Signs 04/24/18 19:00 04/24/18 20:00 04/24/18 22:00 Temperature Pulse Rate 75 74 57 L Respiratory Rate 19 38 H 39 H Blood Pressure 151/67 H 152/68 H 136/65 Pulse Oximetry 94 L 95 98 04/24/18 23:00 04/25/18 00:00 04/25/18 01:00 Temperature Pulse Rate 55 L 57 L 56 L Respiratory Rate 35 H 20 19 Blood Pressure 140/64 152/63 H 152/66 H Pulse Oximetry 98 98 98 04/25/18 02:00 04/25/18 04:00 04/25/18 06:00 Temperature Pulse Rate 60 67 54 L Respiratory Rate 29 H 16 Blood Pressure 121/60 133/61 Pulse Oximetry 98 100 04/25/18 07:00 04/25/18 08:00 04/25/18 08:40 Temperature 98.1 F Pulse Rate 58 L 52 L Respiratory Rate 18 18 Blood Pressure 136/63 138/62 Pulse Oximetry 100 95 100 04/25/18 08:44 04/25/18 08:52 04/25/18 09:00 Temperature Pulse Rate 66 72 Respiratory Rate 37 H 38 H Blood Pressure 158/69 H 169/69 H Pulse Oximetry 98 04/25/18 10:04 04/25/18 10:07 04/25/18 11:00 Temperature Pulse Rate 70 71 57 L Respiratory Rate 17 11 L 23 Blood Pressure 185/68 H 141/65 H 139/60 Pulse Oximetry 94 L 97 97 04/25/18 12:00 04/25/18 13:00 04/25/18 14:00 Temperature 98.0 F Pulse Rate 63 66 67 Respiratory Rate 26 H 33 H 20 Blood Pressure 129/52 L 145/66 H 159/69 H Pulse Oximetry 97 97 95 Intake & Output 04/24/18 04/25/18 04/25/18 18:59 06:59 18:59 Intake Total 100 / 100 910 / 910 1000 / 1000 Output Total 400 / 400 Balance -300 / -300 910 / 910 1000 / 1000 Weight 77.564 kg 72.3 kg Intake: IV 100 / 100 910 / 910 1000 / 1000 NS Inj 1,000 ML @ 100 mls/hr IV 700 / 700 1000 / 1000 .CONT .Q10H [facility] Rx#:[id number] Keppra 1000 mg/100 mL Premix 100 / 100 100 ML @ 400 mls/hr IV.SIG ONCE ONE Rx#:[id number] Keppra Inj 500 MG In NS Inj 100 210 / 210 ML @ 400 mls/hr IV.SIG Q12H [facility] Rx#:[id number] Output: Urine 400 / 400 Result Diagrams: 04/25/18 04:07 04/25/18 04:07 Imaging: Impressions Carotid Doppler Study 04/24/18 00:00 CONCLUSION: 1. Right Internal Carotid Artery: Findings indicate <50% stenosis. 2. Left Internal Carotid Artery: Findings indicate <50% stenosis. Head CT 04/25/18 06:15 CONCLUSION: 1. Persistent small area of hemorrhage in the right temporal lobe. This appears to be evolving and slightly smaller on the current exam. New areas of hemorrhage are not seen. 2. Atrophy with some expansion of the extra axial spaces and widening of the cortical sulci. 3. Left maxillary, zygomatic arch and presumably orbital floor fractures. . Disinhibition Score: 14.00 Aggression Score: 14.00 Lability Score: 14.00 Agitated Behavior Total Score: 14 - Exam PERSONNEL ASSOCIATE: Patient status post fall and syncopal episode Patient is awake alert and oriented Neurologically is fully intact and right temporal intraparenchymal cerebral contusion is stable Facial fractures were evaluated by Dr. Riddle and surgical reconstruction is recommended but patient refuses this Hemodynamic/Cardiac: Hemodynamically patient is stable at this point During my stay in the patient's room and observation patient did not become either bradycardic or had any arrhythmias that would indicate malfunction of the pacemaker but this was a short period of time Pulmonary/Respiratory: Bilateral breath sounds Abdomen/GI Nutrition: Abdomen soft active bowel sounds Renal/I&O: Extremities normal and renal function preserved Assessment and Plan Attestation: Critical care time 34 minutes
--- NOTE | 2018-04-25 18:47 | P.PN ---
Subjective Interval history: s/p fall - syncopal episode left zmc fracture, malar/zygoma depression pt seen and examined, no complaints aaox3, nad, tolerating po nurse at bedside Physical Exam Vital signs: Vital Signs 04/24/18 19:00 04/24/18 20:00 04/24/18 22:00 Temperature Pulse Rate 75 74 57 L Respiratory Rate 19 38 H 39 H Blood Pressure 151/67 H 152/68 H 136/65 Pulse Oximetry 94 L 95 98 04/24/18 23:00 04/25/18 00:00 04/25/18 01:00 Temperature Pulse Rate 55 L 57 L 56 L Respiratory Rate 35 H 20 19 Blood Pressure 140/64 152/63 H 152/66 H Pulse Oximetry 98 98 98 04/25/18 02:00 04/25/18 04:00 04/25/18 06:00 Temperature Pulse Rate 60 67 54 L Respiratory Rate 29 H 16 Blood Pressure 121/60 133/61 Pulse Oximetry 98 100 04/25/18 07:00 04/25/18 08:00 04/25/18 08:40 Temperature 98.1 F Pulse Rate 58 L 52 L Respiratory Rate 18 18 Blood Pressure 136/63 138/62 Pulse Oximetry 100 95 100 04/25/18 08:44 04/25/18 08:52 04/25/18 09:00 Temperature Pulse Rate 66 72 Respiratory Rate 37 H 38 H Blood Pressure 158/69 H 169/69 H Pulse Oximetry 98 04/25/18 10:04 04/25/18 10:07 04/25/18 11:00 Temperature Pulse Rate 70 71 57 L Respiratory Rate 17 11 L 23 Blood Pressure 185/68 H 141/65 H 139/60 Pulse Oximetry 94 L 97 97 04/25/18 12:00 04/25/18 13:00 04/25/18 14:00 Temperature 98.0 F Pulse Rate 63 66 67 Respiratory Rate 26 H 33 H 20 Blood Pressure 129/52 L 145/66 H 159/69 H Pulse Oximetry 97 97 95 04/25/18 15:00 04/25/18 16:00 04/25/18 17:00 Temperature 98.1 F Pulse Rate 59 L 50 L 59 L Respiratory Rate 19 19 35 H Blood Pressure 123/59 L 132/61 139/64 Pulse Oximetry 96 98 98 12/22/18 18:00 Temperature Pulse Rate 56 L Respiratory Rate 21 Blood Pressure 131/60 Pulse Oximetry 97 Intake & Output 04/24/18 04/25/18 04/25/18 18:59 06:59 18:59 Intake Total 100 / 100 910 / 910 1480 / 1480 Output Total 400 / 400 Balance -300 / -300 910 / 910 1480 / 1480 Weight 77.564 kg 72.3 kg Intake: IV 100 / 100 910 / 910 1000 / 1000 NS Inj 1,000 ML @ 100 mls/hr IV 700 / 700 1000 / 1000 .CONT .Q10H MIN Rx#:[id number] Keppra 1000 mg/100 mL Premix 100 / 100 100 ML @ 400 mls/hr IV.SIG ONCE ONE Rx#:[id number] Keppra Inj 500 MG In NS Inj 100 210 / 210 ML @ 400 mls/hr IV.SIG Q12H MIN Rx#:[id number] Oral 480 / 480 Output: Urine 400 / 400 Other: # Voids 3 # Bowel Movements 0 - Constitutional no acute distress - Routine HEENT Exam Head: Present: normocephalic Eye: Present: EOMI, PERRL, normal accommodation Comments: facial.nasal/chin abrasions stable/hemostatic decrease in left periorbital/facial edema left infraorbital rim - mild step noted flattening/depression of left face/zygoma left v2 altered sensation Results - Labs CBC & Chem 7: 04/25/18 04:07 04/25/18 04:07 Laboratory Results - last 24 hr 04/24/18 04/25/18 04/25/18 18:00 04:07 04:07 WBC 7.0 RBC 4.42 L Hgb 14.0 D Hct 40.6 MCV 91.9 MCH 31.6 MCHC 34.4 RDW 14.0 Plt Count 169 MPV 6.8 L Neut % (Auto) 71.2 H Lymph % (Auto) 17.8 [place] % (Auto) 10.0 H Eos % (Auto) 0.5 Baso % (Auto) 0.5 Neut # (Auto) 5.0 Lymph # (Auto) 1.3 [place] # (Auto) 0.7 Eos # (Auto) 0.0 Baso # (Auto) 0.0 WBC Differential . Differential Comment Auto diff final Sodium 143 Potassium 4.1 D Chloride 106 Carbon Dioxide 29.4 Anion Gap 8 BUN 13 Creatinine 1.12 Estimated GFR 63 L Random Glucose 84 Calcium 8.6 Nasal Screen MRSA (PCR) Not detected - Imaging Impressions Carotid Doppler Study 04/24/18 00:00 CONCLUSION: 1. Right Internal Carotid Artery: Findings indicate <50% stenosis. 2. Left Internal Carotid Artery: Findings indicate <50% stenosis. Head CT 04/25/18 06:15 CONCLUSION: 1. Persistent small area of hemorrhage in the right temporal lobe. This appears to be evolving and slightly smaller on the current exam. New areas of hemorrhage are not seen. 2. Atrophy with some expansion of the extra axial spaces and widening of the cortical sulci. 3. Left maxillary, zygomatic arch and presumably orbital floor fractures. . Assessment and Plan - Plan orif left zmc fracture tomorrow am neuro/cardio input noted benefits/risks reviewed including visual/eylid disturbances/numbness/ further surgeries as needed all questions/concerns addressed
--- NOTE | 2018-04-26 00:43 | ECG ---
Date Performed: 04/24/2018 Time Performed: 09:10:18 PTAGE: 83 years EKG: Sinus rhythm POSSIBLE ANTERIOR MYOCARDIAL INFARCTION ABNORMAL ECG PREVIOUS TRACING : 01/09/2018 16.06 Since the previous tracing, no significant change noted DOCTOR: Aron Candelaria Interpretating Date/Time 04/26/2018 00:41:21
[2018-04-26] MEDS: Sod Chloride 0.9% Inj 1,000 ML IV.CONT SCH ×2 (04:49→16:49)
[2018-04-26] MEDS: Chlorhexidine Gluconate 2% 1 Pack (2 Cloths) TOPICAL SCH (04:49)
--- NOTE | 2018-04-26 06:22 | P.PNCC ---
Subjective Brief History: The patient is an 83-year-old male with multiple medical issues who presented status post fall. The patient was down for an unknown period of time. Positive loss of consciousness noted. He tripped over something and fell onto his face with significant bruising to the left side of face and concern for a syncopal episode. The patient was hemodynamically stable on arrival. GCS of 15, minimal dementia and confusion, and noted to be following commands appropriately. He had further workup including a CT scan showing right temporal intracranial hemorrhage and facial fractures of the left orbit. 24 Hour Review/Hospital Course: 04/25/2018 Patient status post fall and syncopal episode Patient is awake alert and oriented Neurologically is fully intact and right temporal intraparenchymal cerebral contusion is stable Facial fractures were evaluated by Dr. Riddle and surgical reconstruction is recommended but patient refuses this Hemodynamically patient is stable at this point Bilateral breath sounds Abdomen soft active bowel sounds Extremities normal and renal function preserved Patient can transfer this point to the floor He will require syncopal workup considering that he has a pacemaker and had about 5 falls in a very short period of time at which point he loses consciousness. If he had the pacemaker placed for sick sinus syndrome and now he is having syncopal episodes that may be related to improper function of the pacemaker or some other underlying issue Carotid ultrasound reveals mild bilateral carotid stenosis and that should be a problem Patient will have CTA of the brain or MRI and will see which way this goes 04/26/2018 Patient is awake alert and oriented Neurologically fully intact Bruising over the face is slowly receding Hemodynamically stable with bilateral breath sounds Cardiology consult greatly appreciated. Fully agree with Dr. Candelaria as far as the differential diagnosis of patient's syncope. Patients with unrecognized occult seizures will occasionally present with various pre-seizure symptoms in form of either unusual tastes and smells visual or auditory disturbances which are replicated every time and patient then developed seizures. 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 Objective Vital Signs / I&O: Vital Signs 04/25/18 07:00 04/25/18 08:00 04/25/18 08:40 Temperature 98.1 F Pulse Rate 58 L 52 L Respiratory Rate 18 18 Blood Pressure 136/63 138/62 Pulse Oximetry 100 95 100 04/25/18 08:44 04/25/18 08:52 04/25/18 09:00 Temperature Pulse Rate 66 72 Respiratory Rate 37 H 38 H Blood Pressure 158/69 H 169/69 H Pulse Oximetry 98 04/25/18 10:04 04/25/18 10:07 04/25/18 11:00 Temperature Pulse Rate 70 71 57 L Respiratory Rate 17 11 L 23 Blood Pressure 185/68 H 141/65 H 139/60 Pulse Oximetry 94 L 97 97 04/25/18 12:00 04/25/18 13:00 04/25/18 14:00 Temperature 98.0 F Pulse Rate 63 66 67 Respiratory Rate 26 H 33 H 20 Blood Pressure 129/52 L 145/66 H 159/69 H Pulse Oximetry 97 97 95 04/25/18 15:00 04/25/18 16:00 04/25/18 17:00 Temperature 98.1 F Pulse Rate 59 L 50 L 59 L Respiratory Rate 19 19 35 H Blood Pressure 123/59 L 132/61 139/64 Pulse Oximetry 96 98 98 04/25/18 18:00 04/25/18 19:00 04/25/18 20:00 Temperature 97.9 F Pulse Rate 56 L 63 63 Respiratory Rate 21 21 20 Blood Pressure 131/60 142/65 H 130/60 Pulse Oximetry 97 98 96 04/25/18 20:38 04/25/18 21:00 04/25/18 22:00 Temperature Pulse Rate 61 51 L Respiratory Rate 18 19 Blood Pressure 133/60 122/59 L Pulse Oximetry 97 98 97 04/25/18 23:00 04/26/18 00:00 04/26/18 01:00 Temperature Pulse Rate 53 L 50 L 50 L Respiratory Rate 19 20 19 Blood Pressure 112/54 L 129/63 108/54 L Pulse Oximetry 96 95 94 L 04/26/18 02:00 04/26/18 04:00 04/26/18 05:58 Temperature Pulse Rate 51 L 56 L 4 L Respiratory Rate 18 18 Blood Pressure 135/61 114/58 L Pulse Oximetry 96 97 Intake & Output 04/25/18 04/25/18 04/26/18 06:59 18:59 06:59 Intake Total 910 / 910 1480 / 1480 1000 / 1000 Balance 910 / 910 1480 / 1480 1000 / 1000 Weight 72.3 kg 73.6 kg Intake: IV 910 / 910 1000 / 1000 1000 / 1000 NS Inj 1,000 ML @ 100 mls/hr IV 700 / 700 1000 / 1000 1000 / 1000 .CONT .Q10H MIN Rx#:[id number] Keppra Inj 500 MG In NS Inj 100 210 / 210 ML @ 400 mls/hr IV.SIG Q12H MIN Rx#:[id number] Oral 480 / 480 Other: # Voids 3 # Bowel Movements 0 Result Diagrams: 04/25/18 04:07 04/25/18 04:07 Imaging: Impressions Head CT 04/25/18 06:15 CONCLUSION: 1. Persistent small area of hemorrhage in the right temporal lobe. This appears to be evolving and slightly smaller on the current exam. New areas of hemorrhage are not seen. 2. Atrophy with some expansion of the extra axial spaces and widening of the cortical sulci. 3. Left maxillary, zygomatic arch and presumably orbital floor fractures. . Disinhibition Score: 14.00 Aggression Score: 14.00 Lability Score: 14.00 Agitated Behavior Total Score: 14 Assessment and Plan Attestation: Patient awaiting floor bed no critical care time charged
[2018-04-26] MEDS: levETIRAcetam 500 MG Tablet PO SCH ×2 (08:37→21:05)
[2018-04-26] MEDS: amLODIPine 5 MG Tablet PO SCH (08:37)
[2018-04-26] MEDS: Docusate Sodium 100 MG Capsule PO SCH ×2 (08:42→21:06)
[2018-04-26] MEDS: Metoprolol Tartrate 25 MG Tablet PO SCH ×2 (08:43→21:05)
[2018-04-26] MEDS: Tiotropium Bromide 18 MCG/ACT Inhaler INH SCH (08:44)
--- NOTE | 2018-04-26 09:05 | P.CONNEU ---
History of Present Illness Service: Syncope Primary Care Provider: Christian Rodrigues MD Chief Complaint: Syncope History of Present Illness: 83-year-old male admitted after having a fall found to have right temporal intracranial hemorrhage. Seen by neurosurgery followed by trauma team. Since July has been having episodes of dizziness and syncope. These are usually preceded by metallic taste and odor metallic smell. He will sometimes sit down and the episodes well pass over. Followed by cardiology. Denies any history of concussion in the past versus ROUSTABOUT infection or febrile seizures any family history of seizures. No history of TIA or stroke. Review of Systems All other systems reviewed negative except as stated in HPI [facility] - History History Provided By: Patient - Medical History Medical History: Medical History (Last Reviewed 04/27/18 @ 07:32 by Nickolas Briones) Pacemaker Syncope COPD (chronic obstructive pulmonary disease) HLD (hyperlipidemia) HTN (hypertension) Hyperchloremia - Tobacco History Second Hand Smoke Exposure: No Tobacco Use In Past 30 Days: No Smoking Status: Former smoker Tobacco Type: Cigarettes - Alcohol History How Often Do You Have a Drink Containing Alcohol: Monthly or less - Substance Use History Substance History: No History of Abuse - Travel History Recent Travel in the [place] Within the Last 8 Weeks: No Recent Travel Out of the Country Within the Last 8 Weeks: No - Immunization History Tetanus Immunization: Unsure Medications and Allergies Active Medications: Active Medications Albuterol (Duoneb Neb (Prn)) 1 ampul NEB Q2HR NEB PRN PRN Reason: SHORTNESS OF BREATH/WHEEZING Albuterol (Ventolin Hfa Inh) 2 puff INH QID [facility] Last Admin: 04/26/18 08:43 Dose: 2 puff Amlodipine Besylate (Norvasc) 10 mg PO DAILY [facility] Last Admin: 04/26/18 08:37 Dose: 10 mg Bacitracin (Baciguent Oint) 1 applicatio TOPICAL BID [facility] Last Admin: 04/25/18 20:17 Dose: Not Given Chlorhexidine Gluconate (Chlorhexidine 2% Cloth) 3 pack TOPICAL DAILY@0400 [facility] Stop: 04/30/18 03:59 Last Admin: 04/26/18 04:49 Dose: 3 pack Chlorhexidine Gluconate (Chlorhexidine 2% Cloth) 3 pack TOPICAL DAILY@0400 PRN PRN Reason: Extra cloth needed Stop: 04/30/18 03:59 Docusate Sodium (Colace) 100 mg PO BID [facility] Last Admin: 04/26/18 08:42 Dose: Not Given Enalaprilat (Vasotec Inj) 1.25 mg IV.PUSH Q8H PRN PRN Reason: Blood pressure 180/95 Sodium Chloride (Ns Inj) 1,000 mls @ 100 mls/hr IV.CONT .Q10H [facility] Last Admin: 04/26/18 04:49 Dose: Not Given Acetaminophen (Ofirmev Inj) 1,000 mg in 100 mls @ 400 mls/hr IV.SIG Q6H PRN PRN Reason: Pain >3 or Fever > 101 F Levetiracetam (Keppra) 500 mg PO BID [facility] Last Admin: 04/26/18 08:37 Dose: 500 mg Metoprolol Tartrate (Lopressor) 12.5 mg PO BID [facility] Last Admin: 04/26/18 08:43 Dose: Not Given Morphine Sulfate (Morphine Inj) 2 mg IV.PUSH Q3H PRN PRN Reason: Break through pain Ondansetron HCl (Zofran Inj) 4 mg IV.PUSH Q6H PRN PRN Reason: NAUSEA OR VOMITING Pantoprazole Sodium (Protonix Inj) 40 mg IV.PUSH Q24H [facility] Last Admin: 04/25/18 13:20 Dose: 40 mg Sodium Chloride (Ns Flush) 2 ml IV.FLUSH UNSCH PRN PRN Reason: FLUSH AFTER USING IV ACCESS Tiotropium [place] (Spiriva 18 Mcg Inh) 18 mcg INH DAILY [facility] Last Admin: 04/26/18 08:44 Dose: 18 mcg Allergies Allergy/AdvReac Type Severity Reaction Status Date / Time amoxicillin Allergy Severe DONT Verified 04/24/18 09:08 REMEMBER clavulanic acid Allergy Severe DONT Verified 04/24/18 09:08 REMEMBER penicillin G Allergy Severe HIVES Verified 04/24/18 09:08 prednisone Allergy Severe IMPENDING Verified 04/24/18 09:08 DOOM simvastatin Allergy Severe CAN'T Verified 04/24/18 09:08 REMEMBER tiotropium Allergy Severe CAN'T Verified 04/24/18 09:08 REMEMBER Home Medications Medication Instructions Recorded Confirmed Type amlodipine 10 mg PO DAILY 01/09/18 04/24/18 History ipratropium-albuterol [Combivent 1 puff INHALATION Q6H 01/09/18 04/24/18 History Respimat] metoprolol tartrate 12.5 mg PO BID 04/24/18 04/24/18 History Exam Vital signs: Vital Signs 04/25/18 10:04 04/25/18 10:07 04/25/18 11:00 Temperature Pulse Rate 70 71 57 L Respiratory Rate 17 11 L 23 Blood Pressure 185/68 H 141/65 H 139/60 Pulse Oximetry 94 L 97 97 04/25/18 12:00 04/25/18 13:00 04/25/18 14:00 Temperature 98.0 F Pulse Rate 63 66 67 Respiratory Rate 26 H 33 H 20 Blood Pressure 129/52 L 145/66 H 159/69 H Pulse Oximetry 97 97 95 04/25/18 15:00 04/25/18 16:00 04/25/18 17:00 Temperature 98.1 F Pulse Rate 59 L 50 L 59 L Respiratory Rate 19 19 35 H Blood Pressure 123/59 L 132/61 139/64 Pulse Oximetry 96 98 98 04/25/18 18:00 04/25/18 19:00 04/25/18 20:00 Temperature 97.9 F Pulse Rate 56 L 63 63 Respiratory Rate 21 21 20 Blood Pressure 131/60 142/65 H 130/60 Pulse Oximetry 97 98 96 04/25/18 20:38 04/25/18 21:00 04/25/18 22:00 Temperature Pulse Rate 61 51 L Respiratory Rate 18 19 Blood Pressure 133/60 122/59 L Pulse Oximetry 97 98 97 04/25/18 23:00 04/26/18 00:00 04/26/18 01:00 Temperature Pulse Rate 53 L 50 L 50 L Respiratory Rate 19 20 19 Blood Pressure 112/54 L 129/63 108/54 L Pulse Oximetry 96 95 94 L 04/26/18 02:00 04/26/18 04:00 04/26/18 05:58 Temperature Pulse Rate 51 L 56 L 4 L Respiratory Rate 18 18 Blood Pressure 135/61 114/58 L Pulse Oximetry 96 97 Intake & Output 04/25/18 04/26/18 04/26/18 18:59 06:59 18:59 Intake Total 1480 / 1480 1000 / 1000 Balance 1480 / 1480 1000 / 1000 Weight 73.6 kg Intake: IV 1000 / 1000 1000 / 1000 NS Inj 1,000 ML @ 100 mls/hr IV 1000 / 1000 1000 / 1000 .CONT .Q10H MIN Rx#:[id number] Oral 480 / 480 Other: # Voids 3 # Bowel Movements 0 Narrative: GENERAL: in NAD, SKIN: Left facial bruising laceration as well as right hand HEAD: Atraumatic. Normocephalic. EYES: Pupils equal and round. No scleral icterus. ENT: No nasal bleeding or discharge. Mucous membranes pink and moist. NECK: Trachea midline. No JVD. CARDIOVASCULAR: Regular rate and rhythm. RESPIRATORY: No accessory muscle use. GASTROINTESTINAL: Abdomen soft, non-tender, nondistended. MUSCULOSKELETAL: Extremities without clubbing, cyanosis, or edema. No obvious deformities. NEUROLOGICAL: Awake and alert. No aphasia, oriented x3 fluent articulate, eomi, VFF, No drift, Motor grossly within normal limits. Five out of 5 muscle strength in the arms and legs. Tone normal in all 4 limbs, Sensory normal in all 4 extremities to pin, msr 1-2+ sym, no clonus, planterflexor, PSYCHIATRIC: Appropriate mood and affect; insight and judgment normal. - Constitutional no acute distress - Routine HEENT Exam Head: Present: normocephalic Eye: Present: EOMI Results - Labs CBC & Chem 7: 04/25/18 04:07 04/25/18 04:07 - Imaging Impressions Head CT 04/25/18 06:15 CONCLUSION: 1. Persistent small area of hemorrhage in the right temporal lobe. This appears to be evolving and slightly smaller on the current exam. New areas of hemorrhage are not seen. 2. Atrophy with some expansion of the extra axial spaces and widening of the cortical sulci. 3. Left maxillary, zygomatic arch and presumably orbital floor fractures. . Review/Management - Diagnosis (1) Hemorrhage of right temporal lobe Code(s): I61.1 - Nontraumatic intracerebral hemorrhage in hemisphere, cortical Status: Acute Current Visit: Yes (2) Closed fracture of tripod Code(s): S02.402A - Zygomatic fracture, unspecified side, initial encounter for closed fracture Status: Acute Current Visit: Yes (3) Fall Code(s): W19.XXXA - Unspecified fall, initial encounter Status: Acute Current Visit: Yes - Review/Management Plan: Possibility complex partial seizure Recommendation Check EEG Follow exam No driving, operating any heavy machinery or dangerous machinery, swimming alone for at least 6 months of being seizure, spell free. (2) Closed fracture of tripod Qualifiers: Encounter type: initial encounter Qualified Code(s): S02.402A - Zygomatic fracture, unspecified side, initial encounter for closed fracture (3) Fall Qualifiers: Encounter type: initial encounter Qualified Code(s): W19.XXXA - Unspecified fall, initial encounter
--- NOTE | 2018-04-26 11:54 | P.PNNS ---
Subjective Interval history: Doing well, awaiting maxface repair. Physical Exam Vital signs: Vital Signs 04/25/18 12:00 04/25/18 13:00 04/25/18 14:00 Temperature 98.0 F Pulse Rate 63 66 67 Respiratory Rate 26 H 33 H 20 Blood Pressure 129/52 L 145/66 H 159/69 H Pulse Oximetry 97 97 95 04/25/18 15:00 04/25/18 16:00 04/25/18 17:00 Temperature 98.1 F Pulse Rate 59 L 50 L 59 L Respiratory Rate 19 19 35 H Blood Pressure 123/59 L 132/61 139/64 Pulse Oximetry 96 98 98 04/25/18 18:00 04/25/18 19:00 04/25/18 20:00 Temperature 97.9 F Pulse Rate 56 L 63 63 Respiratory Rate 21 21 20 Blood Pressure 131/60 142/65 H 130/60 Pulse Oximetry 97 98 96 04/25/18 20:38 04/25/18 21:00 04/25/18 22:00 Temperature Pulse Rate 61 51 L Respiratory Rate 18 19 Blood Pressure 133/60 122/59 L Pulse Oximetry 97 98 97 04/25/18 23:00 04/26/18 00:00 04/26/18 01:00 Temperature Pulse Rate 53 L 50 L 50 L Respiratory Rate 19 20 19 Blood Pressure 112/54 L 129/63 108/54 L Pulse Oximetry 96 95 94 L 04/26/18 02:00 04/26/18 04:00 04/26/18 05:00 Temperature Pulse Rate 51 L 56 L 51 L Respiratory Rate 18 18 19 Blood Pressure 135/61 114/58 L 137/59 L Pulse Oximetry 96 97 98 04/26/18 05:58 04/26/18 06:00 04/26/18 07:00 Temperature Pulse Rate 4 L 51 L 58 L Respiratory Rate 18 18 Blood Pressure 135/61 141/63 H Pulse Oximetry 96 97 04/26/18 08:00 04/26/18 09:00 04/26/18 10:00 Temperature 97.6 F Pulse Rate 62 64 60 Respiratory Rate 18 35 H 20 Blood Pressure 147/65 H 144/65 H 142/67 H Pulse Oximetry 97 93 L 94 L 04/26/18 10:41 Temperature Pulse Rate Respiratory Rate Blood Pressure Pulse Oximetry 96 Intake & Output 04/25/18 04/26/18 04/26/18 18:59 06:59 18:59 Intake Total 1480 / 1480 1000 / 1000 Balance 1480 / 1480 1000 / 1000 Weight 73.6 kg Intake: IV 1000 / 1000 1000 / 1000 NS Inj 1,000 ML @ 100 mls/hr IV 1000 / 1000 1000 / 1000 .CONT .Q10H MIN Rx#:[id number] Oral 480 / 480 Other: # Voids 3 # Bowel Movements 0 Narrative: A&O x 3 CN II-XII intact Motor 5/5 UE/LE full strength Assessment and Plan - Plan 83yoM fall with facial trauma, right temporal intraparenchymal hemorrhage, GCS 15, +LOC. Keppra 1gm load then 500mg BID x 7d Repeat CT in AM Neuro checks overnight Appreciate trauma and max-face evals Consider syncope workup as it appears to be frequent Mobilize, act as tolerated, pt/ot 04/25/18 Cleared from neurosurgical point of view for diet and any facial repair surgery (?tomorrow). Continue Keppra x 1 week. OOB and activity as tolerated 04/26/[address] stable. Keppra x 1 week. OOB and activity as tolerated. Facial surgery today. Neurosurgery will follow peripherally. Call with questions.
[2018-04-26] MEDS ORDERED: Chlorhexidine Gluconate 0.12% Liq 15 ML UDC ONE (12:02)
[2018-04-26] MEDS ORDERED: Clindamycin Inj 600 MG/4 ML Vial ONE (12:03)
[2018-04-26] MEDS ORDERED: Balanced Salt Opth Irrigation 15 APPLIC/15 ML Bottle ONE ×2 (12:04→13:34)
[2018-04-26] MEDS ORDERED: Lidocaine 2%/Epinephrine 1:200,000 PF Inj 20 ML Vial ONE (12:09)
[2018-04-26] MEDS ORDERED: Artificial Tears Opth Oint 3.5 GM Tube ONE ×2 (12:38→12:39)
--- NOTE | 2018-04-26 12:47 | ECHRPT ---
Indication: CONCLUSIONS The left ventricular systolic function is low normal with an estimated ejection fraction in the rang e of 50- 55%. Normal left ventricular size. Wall thickness is normal. technically difficult study BP: / HR: Rhythm: Sinus MEASUREMENTS (Male / Female) Normal Values Technical Quality:Technically difficult study 2D ECHO LV Diastolic Diameter PLAX 4.4 cm 4.2 - 5.9 / 3.9 - 5.3 cm LV Systolic Diameter PLAX 3.4 cm IVS Diastolic Thickness 0.8 cm 0.6 - 1.0 / 0.6 - 0.9 cm LVPW Diastolic Thickness 0.8 cm 0.6 - 1.0 / 0.6 - 0.9 cm LV Relative Wall Thickness 0.4 LVOT Diameter 2.0 cm DOPPLER AV Peak Velocity 99.1 cm/s AV Peak Gradient 3.9 mmHg LVOT Peak Velocity 79.5 cm/s LVOT Peak Gradient 2.5 mmHg AV Area Cont Eq pk 2.5 cm Mitral E Point Velocity 70.1 cm/s Mitral A Point Velocity 70.6 cm/s Mitral E to A Ratio 1.0 LV E' Lateral Velocity 1.8 cm/s Mitral E to LV E' Lateral Ratio 37.9 LV E' Septal Velocity 5.8 cm/s Mitral E to LV E' Septal Ratio 12.2 PV Peak Velocity 136.0 cm/s PV Peak Gradient 7.4 mmHg FINDINGS LEFT VENTRICLE The left ventricular systolic function is low normal with an estimated ejection fraction in the rang e of 50- 55%. Normal left ventricular size. Wall thickness is normal. RIGHT VENTRICLE Normal right ventricular size and systolic function. LEFT ATRIUM The left atrial size is normal. RIGHT ATRIUM The right atrial size is normal. ATRIAL SEPTUM Normal atrial septal thickness without atrial level shunting by limited color doppler interrogation. AORTA The aortic root and proximal ascending aorta are normal in size on limited imaging. MITRAL VALVE Structurally normal mitral valve. No mitral valve stenosis or regurgitation. AORTIC VALVE Trileaflet aortic valve. No aortic valve stenosis or regurgitation. TRICUSPID VALVE Structurally normal tricuspid valve. No tricuspid valve stenosis or regurgitation. PULMONARY VALVE The pulmonary valve is not well visualized. VESSELS The inferior vena cava is normal in size. PERICARDIUM No pericardial effusion. Aaron Norman MD, FACC, [facility] [place] (Electronically Signed) Final Date:26 April 2018 11:46
--- NOTE | 2018-04-26 14:01 | P.OP ---
- Preoperative Diagnosis (1) Closed fracture of tripod Date of procedure: 04/26/18 Procedure: ORIF left zygomatic maxillary complex fracture Anesthesia: GETA, local (2%lidocaine with 1:200,000 epi 5cc) Surgeon: Josiah Riddle DMD Special Education Teaching Assistant: trinidad brown Estimated blood loss (mL): 20 Pathology: none sent
[2018-04-26] MEDS ORDERED: fentaNYL Citrate Inj 100 MCG/2 ML Ampul ONE ×2 (14:02→14:03)
[2018-04-26] MEDS ORDERED: *Meperidine Inj 25 MG/ML Vial PERIprocedural Use ONLY ONE (14:23)
--- NOTE | 2018-04-26 15:00 | P.PNCA ---
Subjective Interval history: For maxillofacial surgery today Medications and Allergies Active Medications: Active Medications Albuterol (Duoneb Neb (Prn)) 1 ampul NEB Q2HR NEB PRN PRN Reason: SHORTNESS OF BREATH/WHEEZING Albuterol (Ventolin Hfa Inh) 2 puff INH QID [facility] Last Admin: 04/26/18 08:43 Dose: 2 puff Amlodipine Besylate (Norvasc) 10 mg PO DAILY [facility] Last Admin: 04/26/18 08:37 Dose: 10 mg Bacitracin (Baciguent Oint) 1 applicatio TOPICAL BID [facility] Last Admin: 04/25/18 20:17 Dose: Not Given Chlorhexidine Gluconate (Chlorhexidine 2% Cloth) 3 pack TOPICAL DAILY@0400 [facility] Stop: 04/30/18 03:59 Last Admin: 04/26/18 04:49 Dose: 3 pack Chlorhexidine Gluconate (Chlorhexidine 2% Cloth) 3 pack TOPICAL DAILY@0400 PRN PRN Reason: Extra cloth needed Stop: 04/30/18 03:59 Docusate Sodium (Colace) 100 mg PO BID [facility] Last Admin: 04/26/18 08:42 Dose: Not Given Enalaprilat (Vasotec Inj) 1.25 mg IV.PUSH Q8H PRN PRN Reason: Blood pressure 180/95 Sodium Chloride (Ns Inj) 1,000 mls @ 100 mls/hr IV.CONT .Q10H [facility] Last Admin: 04/26/18 04:49 Dose: Not Given Acetaminophen (Ofirmev Inj) 1,000 mg in 100 mls @ 400 mls/hr IV.SIG Q6H PRN PRN Reason: Pain >3 or Fever > 101 F Clindamycin/Sodium Chloride (Cleocin 600 Mg/Ns Premix) 600 mg in 50 mls @ 100 mls/hr IV.SIG Q8H [facility] Stop: 04/27/18 12:29 Levetiracetam (Keppra) 500 mg PO BID [facility] Last Admin: 04/26/18 08:37 Dose: 500 mg Metoprolol Tartrate (Lopressor) 12.5 mg PO BID [facility] Last Admin: 04/26/18 08:43 Dose: Not Given Morphine Sulfate (Morphine Inj) 2 mg IV.PUSH Q3H PRN PRN Reason: Break through pain Ondansetron HCl (Zofran Inj) 4 mg IV.PUSH Q6H PRN PRN Reason: NAUSEA OR VOMITING Pantoprazole Sodium (Protonix Inj) 40 mg IV.PUSH Q24H [facility] Last Admin: 04/25/18 13:20 Dose: 40 mg Sodium Chloride (Ns Flush) 2 ml IV.FLUSH UNSCH PRN PRN Reason: FLUSH AFTER USING IV ACCESS Tiotropium [place] (Spiriva 18 Mcg Inh) 18 mcg INH DAILY [facility] Last Admin: 04/26/18 08:44 Dose: 18 mcg Allergies Allergy/AdvReac Type Severity Reaction Status Date / Time amoxicillin Allergy Severe DONT Verified 04/24/18 09:08 REMEMBER clavulanic acid Allergy Severe DONT Verified 04/24/18 09:08 REMEMBER penicillin G Allergy Severe HIVES Verified 04/24/18 09:08 prednisone Allergy Severe IMPENDING Verified 04/24/18 09:08 DOOM simvastatin Allergy Severe CAN'T Verified 04/24/18 09:08 REMEMBER tiotropium Allergy Severe CAN'T Verified 04/24/18 09:08 REMEMBER Home Medications Medication Instructions Recorded Confirmed Type amlodipine 10 mg PO DAILY 01/09/18 04/24/18 History ipratropium-albuterol [Combivent 1 puff INHALATION Q6H 01/09/18 04/24/18 History Respimat] metoprolol tartrate 12.5 mg PO BID 04/24/18 04/24/18 History Physical Exam Vital signs: Vital Signs 04/25/18 15:00 04/25/18 16:00 04/25/18 17:00 Temperature 98.1 F Pulse Rate 59 L 50 L 59 L Respiratory Rate 19 19 35 H Blood Pressure 123/59 L 132/61 139/64 Pulse Oximetry 96 98 98 04/25/18 18:00 04/25/18 19:00 04/25/18 20:00 Temperature 97.9 F Pulse Rate 56 L 63 63 Respiratory Rate 21 21 20 Blood Pressure 131/60 142/65 H 130/60 Pulse Oximetry 97 98 96 04/25/18 20:38 04/25/18 21:00 04/25/18 22:00 Temperature Pulse Rate 61 51 L Respiratory Rate 18 19 Blood Pressure 133/60 122/59 L Pulse Oximetry 97 98 97 04/25/18 23:00 04/26/18 00:00 04/26/18 01:00 Temperature Pulse Rate 53 L 50 L 50 L Respiratory Rate 19 20 19 Blood Pressure 112/54 L 129/63 108/54 L Pulse Oximetry 96 95 94 L 04/26/18 02:00 04/26/18 04:00 04/26/18 05:00 Temperature Pulse Rate 51 L 56 L 51 L Respiratory Rate 18 18 19 Blood Pressure 135/61 114/58 L 137/59 L Pulse Oximetry 96 97 98 04/26/18 05:58 04/26/18 06:00 04/26/18 07:00 Temperature Pulse Rate 4 L 51 L 58 L Respiratory Rate 18 18 Blood Pressure 135/61 141/63 H Pulse Oximetry 96 97 04/26/18 08:00 04/26/18 09:00 04/26/18 10:00 Temperature 97.6 F Pulse Rate 62 64 60 Respiratory Rate 18 35 H 20 Blood Pressure 147/65 H 144/65 H 142/67 H Pulse Oximetry 97 93 L 94 L 04/26/18 10:41 04/26/18 13:56 04/26/18 14:00 Temperature 97.7 F Pulse Rate 92 H 85 Respiratory Rate 20 17 Blood Pressure 146/67 H 152/67 H Pulse Oximetry 96 100 100 04/26/18 14:15 04/26/18 14:30 04/26/18 14:40 Temperature Pulse Rate 77 70 Respiratory Rate 18 15 Blood Pressure 140/65 142/66 H Pulse Oximetry 100 100 98 04/26/18 14:45 Temperature 97.7 F Pulse Rate 70 Respiratory Rate 15 Blood Pressure 151/66 H Pulse Oximetry 98 Intake & Output 04/25/18 04/26/18 04/26/18 18:59 06:59 18:59 Intake Total 1480 / 1480 1000 / 1000 800 / 800 Output Total 20 / 20 Balance 1480 / 1480 1000 / 1000 780 / 780 Weight 73.6 kg Intake: IV 1000 / 1000 1000 / 1000 NS Inj 1,000 ML @ 100 mls/hr IV 1000 / 1000 1000 / 1000 .CONT .Q10H MIN Rx#:[id number] Oral 480 / 480 Anesthesia Amount 800 / 800 Output: Estimated Blood Loss 20 / 20 Other: # Voids 3 # Bowel Movements 0 Narrative: GENERAL: NAD, AAOx3 SKIN: Warm and dry. HEAD: Ecchymosis and abrasions from syncope EYES: Pupils equal and round. ENT: No nasal bleeding or discharge. Mucous membranes pink and moist. NECK: Trachea midline. No JVD. CARDIOVASCULAR: Regular rate and rhythm. RESPIRATORY: No accessory muscle use. Clear to auscultation. Breath sounds equal bilaterally. GASTROINTESTINAL: Abdomen soft, non-tender, nondistended. Hepatic and splenic margins not palpable. MUSCULOSKELETAL: Extremities without clubbing, cyanosis, or edema. No obvious deformities. NEUROLOGICAL: Awake and alert. No obvious cranial nerve deficits. Motor grossly within normal limits. Five out of 5 muscle strength in the arms and legs. Normal speech. PSYCHIATRIC: Appropriate mood and affect; insight and judgment normal. Results 04/25/18 04:07 04/25/18 04:07 CBC 04/25/18 Range/Units 04:07 WBC 7.0 (4.0-11.0) th/mm3 RBC 4.42 L (4.50-5.90) mil/mm3 Hgb 14.0 D (13.0-17.0) gm/dL Hct 40.6 (39.0-51.0) % Plt Count 169 (150-450) th/mm3 Neut # (Auto) 5.0 (1.8-7.7) th/mm3 Lymph # (Auto) 1.3 (1.0-4.8) th/mm3 [place] # (Auto) 0.7 (0.0-0.9) th/mm3 Eos # (Auto) 0.0 (0.0-0.4) th/mm3 Baso # (Auto) 0.0 (0.0-0.2) th/mm3 Comprehensive Metabolic Panel 04/25/18 Range/Units 04:07 Sodium 143 (136-145) meq/L Potassium 4.1 D (3.5-5.1) meq/L Chloride 106 (98-107) meq/L Carbon Dioxide 29.4 (21.0-32.0) meq/L BUN 13 (7-18) mg/dL Creatinine 1.12 (0.60-1.30) mg/dL Calcium 8.6 (8.5-10.1) mg/dL Intake and Output 04/25/18 04/26/18 04/26/18 22:59 06:59 14:59 Intake Total 1480 / 1480 800 / 800 Output Total Balance 1480 / 1480 780 / 780 Intake: IV 1000 / 1000 NS Inj 1,000 ML @ 100 mls/hr IV 1000 / 1000 .CONT .Q10H MIN Rx#:[id number] Oral 480 / 480 Anesthesia Amount 800 / 800 Output: Estimated Blood Loss Other: # Voids 3 # Bowel Movements 0 Weight 73.6 kg - Imaging and Cardiology Imaging: Impressions Carotid Doppler Study 04/24/18 00:00 CONCLUSION: 1. Right Internal Carotid Artery: Findings indicate <50% stenosis. 2. Left Internal Carotid Artery: Findings indicate <50% stenosis. Head CT 04/25/18 06:15 CONCLUSION: 1. Persistent small area of hemorrhage in the right temporal lobe. This appears to be evolving and slightly smaller on the current exam. New areas of hemorrhage are not seen. 2. Atrophy with some expansion of the extra axial spaces and widening of the cortical sulci. 3. Left maxillary, zygomatic arch and presumably orbital floor fractures. . Assessment and Plan - Assessment (1) Syncope Code(s): R55 - Syncope and collapse Status: Acute (2) Hemorrhage of right temporal lobe Code(s): I61.1 - Nontraumatic intracerebral hemorrhage in hemisphere, cortical Status: Acute (3) Closed fracture of tripod Code(s): S02.402A - Zygomatic fracture, unspecified side, initial encounter for closed fracture Status: Acute (4) Fall Code(s): W19.XXXA - Unspecified fall, initial encounter Status: Acute - Plan 1. Multiple syncopal episodes. Micra PPM placed and interrogated in working order Metallic taste and smells sulfur before events, possible seizure Neurology to evaluate for seizures 2. Right temporal intraparenchymal hemorrhage. 3. Left-sided zygomaticomaxillary complex fracture as well as a nondisplaced left infraorbital rim fracture. For surgery today 4. Previous sinus pauses, status post Micra pacemaker placement. 5. EF 50-55% (3) Closed fracture of tripod Qualifiers: Encounter type: initial encounter Qualified Code(s): S02.402A - Zygomatic fracture, unspecified side, initial encounter for closed fracture (4) Fall Qualifiers: Encounter type: initial encounter Qualified Code(s): W19.XXXA - Unspecified fall, initial encounter
[2018-04-26] MEDS: Pantoprazole Inj 40 MG Vial IV.PUSH SCH (15:01)
--- NOTE | 2018-04-26 19:55 | MP ---
cc: Josiah Riddle DMD, Roger DMD DATE OF OPERATION: 04/26/2018 PREOPERATIVE DIAGNOSIS: Left-sided zygomaticomaxillary complex fracture. POSTOPERATIVE DIAGNOSIS: Left-sided zygomaticomaxillary complex fracture. PROCEDURE PERFORMED: Open reduction internal fixation of the left zygomaticomaxillary complex fracture. ANESTHESIA: General. Also, 2% lidocaine with 1:200,000 epinephrine, approximately 5 mL. SURGEON: Josiah Riddle DMD MAIL TELLER: Sumaya Rosas RN ESTIMATED BLOOD LOSS: Approximately 20 mL. COMPLICATIONS: None. DISPOSITION: The patient tolerated the procedure well. INDICATIONS: Mr. Fragoso is an 83-year-old male who is status post fall which resulted in him having this zygomaticomaxillary complex fracture on the left side. You can see that he has got a facial depression and a step in the infraorbital rim. In order to restore proper form and function, it was necessary that the patient undergo the above-listed procedures. Benefits, risks and indications of the procedure, procedure in detail, and the option of no treatment, including alternatives were all discussed with this patient. Risks not limited to any postop pain, infection, bleeding, damage to the adjacent teeth, soft tissue, hard tissue, anesthesia complications, malunion, nonunion of the fracture sites, infection of the hardware/failure of the hardware, entropion/ectropion, visual disturbances, further surgeries as required. All questions and concerns were addressed. Consent is signed in his chart. PERTINENT DETAILS: The patient was met preoperatively. The left side of the face operative site was marked with a marking pen. The patient was taken to the operating suite, draped in normal sterile fashion. He underwent oral intubation. The eyes were taped shut on the right side and louped on the left side. All pressure points were padded. At this time, a timeout was taken to identify the patient, the side, the procedure, surgery, and all were in agreement. Betadine prep was done on the operative side and on the left side of the face. The back of the throat was suctioned. A moistened Ray-Darrick was used as a throat pack. 2% lidocaine with 1:200,000 epinephrine was injected in the left maxillary vestibule region. There was ecchymosis that is the left cheek intraorally. Multiple poor, decayed and broken dentition. Edentulous in the lower mandible posterior region. A mouth was irrigated with Peridex solution. A marking pen was used to zayra the Stensen's duct and was kept away from. A 15 blade was used to make an incision in the left maxillary vestibule from the molar to the canine region. A periosteal elevator was used to reflect off the periosteum and expose the fracture sites. Any bleeders were cauterized using a bipolar. I went posteriorly then up and found the zygoma. The buttress is fractured. The zygoma is depressed in. I used the periosteal elevator to lift up the zygoma and the malar prominence, but you can still palpate the rim and you can still note the step region. At this point, I decided to go in and fixate the rim. Now, 2% lidocaine with 1:200,000 epinephrine was injected in the left lower eyelid region. A 2.0 silk was used to go through the tarsal plate and mal the tarsal plate. A Derrick retractor was used to protect the globe. A periosteal elevator was now used to palpate the rim and, using a 15 blade went down in layers using a transconjunctival approach. We went down, using the Kitner also to separate the layers and then, finally a 15 blade down to the rim. I used the periosteal elevator to reflect off the periosteum. Now I can see the fracture that is sitting there. I used a periosteal elevator to lift the fracture site and also used a single ended to bring the fracture site closure. Good approximation is noted. A KLS 1.5 plate was used to help fixate the fracture; good vyge-rx-wbao contact, good approximation of the rim on the left side. The floor appears intact. A drill was used now through the plate to help facilitate placement of the screws. A malleable retractor was also used throughout the procedure. Attention was once again diverted back to the inside of the mouth. An L-plate, 2.0 KLS was contoured into position and fixated using the screws. The sinus was suctioned of all the blood and contents. The site was now irrigated with saline solution. Now, intraorally it was closed with a 3-0 Vicryl suture. The left eye was then irrigated with BSS solution. The 2-0 silk suture was removed. Back of the throat was suctioned. The throat pack was removed. Back of the throat was suctioned again. The patient was extubated. No complications noted. All sponge and needle counts were all accounted for. There was good alignment of the infraorbital rim. The zygoma is now fully in the malar prominence. You can see good projection of his face now. He is nice and stable at this point. No depression noted. INGRID Chaney/sam/elodia , 02:06 PM , 02:17 PM
[2018-04-26] MEDS: Clindamycin 600 mg/NS Premix 600 MG/50 ML PIGGYBACK IV.SIG SCH (21:04)
[2018-04-26 21:08] VITALS: RESP 16
[2018-04-27] MEDS: Sod Chloride 0.9% Inj 1,000 ML IV.CONT SCH ×2 (00:58→05:01)
[2018-04-27 01:20] VITALS: TEMP 98.1
[2018-04-27] MEDS: Chlorhexidine Gluconate 2% 1 Pack (2 Cloths) TOPICAL SCH (04:23)
[2018-04-27] MEDS: Clindamycin 600 mg/NS Premix 600 MG/50 ML PIGGYBACK IV.SIG SCH (05:00)
[2018-04-27 05:15] VITALS: BP 132/60; PULSE 60
[2018-04-27] MEDS ORDERED: Acetaminophen 325 MG Tablet PO PRN (07:19)
--- NOTE | 2018-04-27 09:21 | MG ---
cc: Corey Oliveira MD EEG NUMBER: [id number]. DESCRIPTION: Five to six hertz posterior rhythm 20-40 microvolts. Low-amplitude beta and fast frequencies in the frontal channels with attenuation background suggestive of drowsy state. Occasional movement and eye movement artifact. Transition into drowsy and stage I sleep. Slower theta and intermixed delta activity. Produce driving with photic stimulation. Single EKG showing sinus rhythm. INTERPRETATION: Minimal encephalopathy of sleep state. Clinical correlation. MD CARTER Vizcaino/dheeraj , 09:02 AM , 09:06 AM
[2018-04-27] MEDS: Metoprolol Tartrate 25 MG Tablet PO SCH (09:37)
[2018-04-27] MEDS: Docusate Sodium 100 MG Capsule PO SCH (09:37)
[2018-04-27] MEDS: levETIRAcetam 500 MG Tablet PO SCH (09:37)
[2018-04-27] MEDS: amLODIPine 5 MG Tablet PO SCH (09:37)
[2018-04-27] MEDS: Tiotropium Bromide 18 MCG/ACT Inhaler INH SCH (09:37)
--- NOTE | 2018-04-27 10:33 | P.PN ---
Subjective Interval history: POD 1 s/p orif left zmc fracture pt seen and examined aaox3, nad denies any problems tolerating po sitting out of bed Physical Exam Vital signs: Vital Signs 04/26/18 10:41 04/26/18 13:56 04/26/18 14:00 Temperature 97.7 F Pulse Rate 92 H 85 Respiratory Rate 20 17 Blood Pressure 146/67 H 152/67 H Pulse Oximetry 96 100 100 04/26/18 14:15 04/26/18 14:30 04/26/18 14:40 Temperature Pulse Rate 77 70 Respiratory Rate 18 15 Blood Pressure 140/65 142/66 H Pulse Oximetry 100 100 98 04/26/18 14:45 04/26/18 16:00 04/26/18 20:00 Temperature 97.7 F 97.5 F L 98.3 F Pulse Rate 70 74 86 Respiratory Rate 15 20 16 Blood Pressure 151/66 H 135/62 146/65 H Pulse Oximetry 98 97 95 04/27/18 00:00 04/27/18 03:08 04/27/18 04:00 Temperature 98.1 F 98.1 F Pulse Rate 97 H 60 Respiratory Rate 16 18 16 Blood Pressure 135/64 132/60 Pulse Oximetry 93 L 95 Intake & Output 04/26/18 04/27/18 04/27/18 18:59 06:59 18:59 Intake Total 1830 / 1830 1100 / 1100 Output Total 20 / 20 200 / 200 Balance 1810 / 1810 900 / 900 Weight 73.6 kg Intake: IV 1000 / 1000 1100 / 1100 NS Inj 1,000 ML @ 100 mls/hr IV 1000 / 1000 1000 / 1000 .CONT .Q10H MIN Rx#:[id number] Cleocin 600 mg/NS Premix 600 mg 100 / 100 In 50 ml @ 100 mls/hr IV.SIG Q8H MIN Rx#:[id number] Oral 30 / 30 Anesthesia Amount 800 / 800 Output: Urine 200 / 200 Estimated Blood Loss 20 / 20 Other: # Voids 3 # Bowel Movements 1 - Constitutional no acute distress - Routine HEENT Exam Head: Present: normocephalic Eye: Present: EOMI, PERRL, normal accommodation Comments: left face/infraorbital region edema/ecchymosis all wound margins, intraoral and eyelid, well approximated/ sutures intact intraoral hemostatic tissues pink/well perfused intraorally facial abrasions stable Results - Labs CBC & Chem 7: 04/25/18 04:07 04/25/18 04:07 Assessment and Plan - Plan s/p orif left zmc fracture POD 1 progressing well form oms standpoint ok to d/c to home form oms standpoint f/up dr Riddle 1 week - [facility] [phone] soft diet continue sinus precautions - no nose blowing, no closed mouth sneezing, no drinking through straw can use inhalers for copd
--- NOTE | 2018-04-27 10:47 | P.PN ---
Subjective Interval history: OOB in chair, waiting for EEG per Neurology order Denies pain Requesting to go home Physical Exam Vital signs: Vital Signs 04/26/18 10:41 04/26/18 13:56 04/26/18 14:00 Temperature 97.7 F Pulse Rate 92 H 85 Respiratory Rate 20 17 Blood Pressure 146/67 H 152/67 H Pulse Oximetry 96 100 100 04/26/18 14:15 04/26/18 14:30 04/26/18 14:40 Temperature Pulse Rate 77 70 Respiratory Rate 18 15 Blood Pressure 140/65 142/66 H Pulse Oximetry 100 100 98 04/26/18 14:45 04/26/18 16:00 04/26/18 20:00 Temperature 97.7 F 97.5 F L 98.3 F Pulse Rate 70 74 86 Respiratory Rate 15 20 16 Blood Pressure 151/66 H 135/62 146/65 H Pulse Oximetry 98 97 95 04/27/18 00:00 04/27/18 03:08 04/27/18 04:00 Temperature 98.1 F 98.1 F Pulse Rate 97 H 60 Respiratory Rate 16 18 16 Blood Pressure 135/64 132/60 Pulse Oximetry 93 L 95 Intake & Output 04/26/18 04/27/18 04/27/18 18:59 06:59 18:59 Intake Total 1830 / 1830 1100 / 1100 Output Total 20 / 20 200 / 200 Balance 1810 / 1810 900 / 900 Weight 73.6 kg Intake: IV 1000 / 1000 1100 / 1100 NS Inj 1,000 ML @ 100 mls/hr IV 1000 / 1000 1000 / 1000 .CONT .Q10H MIN Rx#:[id number] Cleocin 600 mg/NS Premix 600 mg 100 / 100 In 50 ml @ 100 mls/hr IV.SIG Q8H IMN Rx#:[id number] Oral 30 / 30 Anesthesia Amount 800 / 800 Output: Urine 200 / 200 Estimated Blood Loss 20 / 20 Other: # Voids 3 # Bowel Movements 1 Narrative: GENERAL: 83-year-old well-nourished, well developed male OOB in chair. SKIN: Warm and dry. Left periorbital edema and ecchymosis extending down face to lateral neck. HEAD: Normocephalic. EYES: Pupils equal and round. No scleral icterus. ENT: No nasal bleeding or discharge. Mucous membranes pink and moist. NECK: Trachea midline. No JVD. CARDIOVASCULAR: Regular rate and rhythm. RESPIRATORY: No accessory muscle use. Lungs clear to auscultation bilaterally. GASTROINTESTINAL: Abdomen soft, non-tender, nondistended. + BS. MUSCULOSKELETAL: Extremities without cyanosis, or edema. MAEW, + perfused NEUROLOGICAL: Awake and alert. Normal speech. Results - Labs CBC & Chem 7: 04/25/18 04:07 04/25/18 04:07 Assessment and Plan - Plan PLATINUM: Fell from the standing position striking his face. Attempted to stand and had a syncopal episode. + LOC. GCS = 15. INJURIES: RIGHT temporal IPH LEFT tripod fx PMHx: COPD , HTN, HLD, syncope, pacemaker RIGHT temporal IPH Neurosurgery consulted Nonoperative management Repeat CT brain shows evolving IPH Avoid second head injury Post-concussive education Continue Keppra LEFT tripod fx OMFS consulted, F/U outpatient 04/26: ORIF of the left zygomaticomaxillary complex fracture Soft diet Sinus precautions Pain control Bowel regimen OOB- PT and OT ordered ? Syncope Cardiology consulted Attempted to get pacemaker interrogated but it does not record events Echocardiogram shows EF 50-55% Carotid ultrasound shows ~50% stenosis bilaterally Neurology consulted for questionable seizure EEG pending for today Continue Keppra Plan of care discussed with patient at bedside. Collaborating Trauma surgeon agrees with plan. Case management consulted to assist with discharge planning. If EEG negative today patient may discharge home on p.o. Keppra and follow-up with neurology as outpatient
--- NOTE | 2018-04-27 10:53 | P.PNNEU ---
Subjective Subjective Comments: No cp, no dyspnea, no harrison, no focal weakness, no vision loss Active Medications: Active Medications Acetaminophen (Tylenol) 650 mg PO Q4H PRN PRN Reason: Pain 1-5 Albuterol (Duoneb Neb (Prn)) 1 ampul NEB Q2HR NEB PRN PRN Reason: SHORTNESS OF BREATH/WHEEZING Albuterol (Ventolin Hfa Inh) 2 puff INH QID [facility] Last Admin: 04/27/18 09:37 Dose: 2 puff Amlodipine Besylate (Norvasc) 10 mg PO DAILY [facility] Last Admin: 04/27/18 09:37 Dose: 10 mg Bacitracin (Baciguent Oint) 1 applicatio TOPICAL BID [facility] Last Admin: 04/27/18 00:58 Dose: Not Given Chlorhexidine Gluconate (Chlorhexidine 2% Cloth) 3 pack TOPICAL DAILY@0400 [facility] Stop: 04/30/18 03:59 Last Admin: 04/27/18 04:23 Dose: Not Given Chlorhexidine Gluconate (Chlorhexidine 2% Cloth) 3 pack TOPICAL DAILY@0400 PRN PRN Reason: Extra cloth needed Stop: 04/30/18 03:59 Docusate Sodium (Colace) 100 mg PO BID [facility] Last Admin: 04/27/18 09:37 Dose: 100 mg Enalaprilat (Vasotec Inj) 1.25 mg IV.PUSH Q8H PRN PRN Reason: Blood pressure 180/95 Clindamycin Phosphate 600 mg/ (Sodium Chloride) 104 mls @ 208 mls/hr IV.SIG Q8H [facility] Stop: 04/27/18 12:29 Levetiracetam (Keppra) 500 mg PO BID [facility] Last Admin: 04/27/18 09:37 Dose: 500 mg Metoprolol Tartrate (Lopressor) 12.5 mg PO BID [facility] Last Admin: 04/27/18 09:37 Dose: 12.5 mg Ondansetron HCl (Zofran Inj) 4 mg IV.PUSH Q6H PRN PRN Reason: NAUSEA OR VOMITING Sodium Chloride (Ns Flush) 2 ml IV.FLUSH UNSCH PRN PRN Reason: FLUSH AFTER USING IV ACCESS Tiotropium [place] (Spiriva 18 Mcg Inh) 18 mcg INH DAILY [facility] Last Admin: 04/27/18 09:37 Dose: 18 mcg Tramadol HCl (Ultram) 50 mg PO Q6H PRN PRN Reason: PAIN SCALE 6 TO 10 Allergies/Adverse Reactions: Allergies Allergy/AdvReac Type Severity Reaction Status Date / Time amoxicillin Allergy Severe DONT Verified 04/24/18 09:08 REMEMBER clavulanic acid Allergy Severe DONT Verified 04/24/18 09:08 REMEMBER penicillin G Allergy Severe HIVES Verified 04/24/18 09:08 prednisone Allergy Severe IMPENDING Verified 04/24/18 09:08 DOOM simvastatin Allergy Severe CAN'T Verified 04/24/18 09:08 REMEMBER tiotropium Allergy Severe CAN'T Verified 04/24/18 09:08 REMEMBER Review of Systems All other systems reviewed negative except as stated in HPI Physical Exam Vital signs: Vital Signs 04/26/18 13:56 04/26/18 14:00 04/26/18 14:15 Temperature 97.7 F Pulse Rate 92 H 85 77 Respiratory Rate 20 17 18 Blood Pressure 146/67 H 152/67 H 140/65 Pulse Oximetry 100 100 100 04/26/18 14:30 04/26/18 14:40 04/26/18 14:45 Temperature 97.7 F Pulse Rate 70 70 Respiratory Rate 15 15 Blood Pressure 142/66 H 151/66 H Pulse Oximetry 100 98 98 04/26/18 16:00 04/26/18 20:00 04/27/18 00:00 Temperature 97.5 F L 98.3 F 98.1 F Pulse Rate 74 86 97 H Respiratory Rate 20 16 16 Blood Pressure 135/62 146/65 H 135/64 Pulse Oximetry 97 95 93 L 04/27/18 03:08 04/27/18 04:00 Temperature 98.1 F Pulse Rate 60 Respiratory Rate 18 16 Blood Pressure 132/60 Pulse Oximetry 95 Intake & Output 04/26/18 04/27/18 04/27/18 18:59 06:59 18:59 Intake Total 1830 / 1830 1100 / 1100 Output Total 20 / 20 200 / 200 Balance 1810 / 1810 900 / 900 Weight 73.6 kg Intake: IV 1000 / 1000 1100 / 1100 NS Inj 1,000 ML @ 100 mls/hr IV 1000 / 1000 1000 / 1000 .CONT .Q10H [facility] Rx#:[id number] Cleocin 600 mg/NS Premix 600 mg 100 / 100 In 50 ml @ 100 mls/hr IV.SIG Q8H [facility] Rx#:[id number] Oral 30 / 30 Anesthesia Amount 800 / 800 Output: Urine 200 / 200 Estimated Blood Loss 20 / 20 Other: # Voids 3 # Bowel Movements 1 Narrative: GENERAL: in NAD, SKIN: Left facial bruising laceration as well as right hand HEAD: Atraumatic. Normocephalic. EYES: Pupils equal and round. No scleral icterus. ENT: No nasal bleeding or discharge. Mucous membranes pink and moist. NECK: Trachea midline. No JVD. CARDIOVASCULAR: Regular rate and rhythm. RESPIRATORY: No accessory muscle use. GASTROINTESTINAL: Abdomen soft, non-tender, nondistended. MUSCULOSKELETAL: Extremities without clubbing, cyanosis, or edema. No obvious deformities. NEUROLOGICAL: Awake and alert. No aphasia, oriented x3 fluent articulate, eomi, VFF, No drift, Motor grossly within normal limits. Five out of 5 muscle strength in the arms and legs. Tone normal in all 4 limbs, Sensory normal in all 4 extremities to pin, msr 1-2+ sym, no clonus, planterflexor, PSYCHIATRIC: Appropriate mood and affect; insight and judgment normal. - Constitutional no acute distress - Routine HEENT Exam Head: Present: normocephalic Review/Management - Diagnosis (1) Hemorrhage of right temporal lobe Code(s): I61.1 - Nontraumatic intracerebral hemorrhage in hemisphere, cortical Status: Acute Current Visit: Yes (2) Closed fracture of tripod Code(s): S02.402A - Zygomatic fracture, unspecified side, initial encounter for closed fracture Status: Acute Current Visit: Yes (3) Fall Code(s): W19.XXXA - Unspecified fall, initial encounter Status: Acute Current Visit: Yes - Review/Management Plan: Possibility complex partial seizure with metallic taste in olfactory auras EEG negative for any active seizure activity Recommendation Continue Keppra Can be discharged from neurology standpoint follow-up in the outpatient setting in 2-3 weeks No driving, operating any heavy machinery or dangerous machinery, swimming alone for at least 6 months of being seizure, spell free. (2) Closed fracture of tripod Qualifiers: Encounter type: initial encounter Qualified Code(s): S02.402A - Zygomatic fracture, unspecified side, initial encounter for closed fracture (3) Fall Qualifiers: Encounter type: initial encounter Qualified Code(s): W19.XXXA - Unspecified fall, initial encounter
--- NOTE | 2018-04-27 11:50 | P.PNCA ---
Subjective Interval history: No events overnight Surgery yesterday, feels well Medications and Allergies Active Medications: Active Medications Acetaminophen (Tylenol) 650 mg PO Q4H PRN PRN Reason: Pain 1-5 Albuterol (Duoneb Neb (Prn)) 1 ampul NEB Q2HR NEB PRN PRN Reason: SHORTNESS OF BREATH/WHEEZING Albuterol (Ventolin Hfa Inh) 2 puff INH QID [facility] Last Admin: 04/27/18 09:37 Dose: 2 puff Amlodipine Besylate (Norvasc) 10 mg PO DAILY [facility] Last Admin: 04/27/18 09:37 Dose: 10 mg Bacitracin (Baciguent Oint) 1 applicatio TOPICAL BID [facility] Last Admin: 04/27/18 00:58 Dose: Not Given Chlorhexidine Gluconate (Chlorhexidine 2% Cloth) 3 pack TOPICAL DAILY@0400 [facility] Stop: 04/30/18 03:59 Last Admin: 04/27/18 04:23 Dose: Not Given Chlorhexidine Gluconate (Chlorhexidine 2% Cloth) 3 pack TOPICAL DAILY@0400 PRN PRN Reason: Extra cloth needed Stop: 04/30/18 03:59 Docusate Sodium (Colace) 100 mg PO BID [facility] Last Admin: 04/27/18 09:37 Dose: 100 mg Enalaprilat (Vasotec Inj) 1.25 mg IV.PUSH Q8H PRN PRN Reason: Blood pressure 180/95 Clindamycin Phosphate 600 mg/ (Sodium Chloride) 104 mls @ 208 mls/hr IV.SIG Q8H [facility] Stop: 04/27/18 12:29 Levetiracetam (Keppra) 500 mg PO BID [facility] Last Admin: 04/27/18 09:37 Dose: 500 mg Metoprolol Tartrate (Lopressor) 12.5 mg PO BID [facility] Last Admin: 04/27/18 09:37 Dose: 12.5 mg Ondansetron HCl (Zofran Inj) 4 mg IV.PUSH Q6H PRN PRN Reason: NAUSEA OR VOMITING Sodium Chloride (Ns Flush) 2 ml IV.FLUSH UNSCH PRN PRN Reason: FLUSH AFTER USING IV ACCESS Tiotropium [place] (Spiriva 18 Mcg Inh) 18 mcg INH DAILY [facility] Last Admin: 04/27/18 09:37 Dose: 18 mcg Tramadol HCl (Ultram) 50 mg PO Q6H PRN PRN Reason: PAIN SCALE 6 TO 10 Allergies Allergy/AdvReac Type Severity Reaction Status Date / Time amoxicillin Allergy Severe DONT Verified 04/24/18 09:08 REMEMBER clavulanic acid Allergy Severe DONT Verified 04/24/18 09:08 REMEMBER penicillin G Allergy Severe HIVES Verified 04/24/18 09:08 prednisone Allergy Severe IMPENDING Verified 04/24/18 09:08 DOOM simvastatin Allergy Severe CAN'T Verified 04/24/18 09:08 REMEMBER tiotropium Allergy Severe CAN'T Verified 04/24/18 09:08 REMEMBER Home Medications Medication Instructions Recorded Confirmed Type amlodipine 10 mg PO DAILY 01/09/18 04/24/18 History ipratropium-albuterol [Combivent 1 puff INHALATION Q6H 01/09/18 04/24/18 History Respimat] metoprolol tartrate 12.5 mg PO BID 04/24/18 04/24/18 History Physical Exam Vital signs: Vital Signs 04/26/18 13:56 04/26/18 14:00 04/26/18 14:15 Temperature 97.7 F Pulse Rate 92 H 85 77 Respiratory Rate 20 17 18 Blood Pressure 146/67 H 152/67 H 140/65 Pulse Oximetry 100 100 100 04/26/18 14:30 04/26/18 14:40 04/26/18 14:45 Temperature 97.7 F Pulse Rate 70 70 Respiratory Rate 15 15 Blood Pressure 142/66 H 151/66 H Pulse Oximetry 100 98 98 04/26/18 16:00 04/26/18 20:00 04/27/18 00:00 Temperature 97.5 F L 98.3 F 98.1 F Pulse Rate 74 86 97 H Respiratory Rate 20 16 16 Blood Pressure 135/62 146/65 H 135/64 Pulse Oximetry 97 95 93 L 04/27/18 03:08 04/27/18 04:00 Temperature 98.1 F Pulse Rate 60 Respiratory Rate 18 16 Blood Pressure 132/60 Pulse Oximetry 95 Intake & Output 04/26/18 04/27/18 04/27/18 18:59 06:59 18:59 Intake Total 1830 / 1830 1100 / 1100 Output Total 20 / 20 200 / 200 Balance 1810 / 1810 900 / 900 Weight 73.6 kg Intake: IV 1000 / 1000 1100 / 1100 NS Inj 1,000 ML @ 100 mls/hr IV 1000 / 1000 1000 / 1000 .CONT .Q10H [facility] Rx#:[id number] Cleocin 600 mg/NS Premix 600 mg 100 / 100 In 50 ml @ 100 mls/hr IV.SIG Q8H [facility] Rx#:[id number] Oral 30 / 30 Anesthesia Amount 800 / 800 Output: Urine 200 / 200 Estimated Blood Loss 20 / 20 Other: # Voids 3 # Bowel Movements 1 Narrative: GENERAL: in NAD, SKIN: Left facial bruising laceration as well as right hand HEAD: Ecchymosis, mild edema post surgery EYES: Pupils equal and round. No scleral icterus. ENT: No nasal bleeding or discharge. Mucous membranes pink and moist. NECK: Trachea midline. No JVD. CARDIOVASCULAR: Regular rate and rhythm. RESPIRATORY: No accessory muscle use. GASTROINTESTINAL: Abdomen soft, non-tender, nondistended. MUSCULOSKELETAL: Extremities without clubbing, cyanosis, or edema. No obvious deformities. NEUROLOGICAL: Awake and alert. No aphasia, oriented x3 PSYCHIATRIC: Appropriate mood and affect; insight and judgment normal. Results 04/25/18 04:07 04/25/18 04:07 Intake and Output 04/26/18 04/27/18 04/27/18 22:59 06:59 14:59 Intake Total 1050 / 1050 1050 / 1050 Output Total 200 / 200 Balance 1050 / 1050 850 / 850 Intake: IV 1050 / 1050 1050 / 1050 NS Inj 1,000 ML @ 100 mls/hr IV 1000 / 1000 1000 / 1000 .CONT .Q10H [facility] Rx#:[id number] Cleocin 600 mg/NS Premix 600 mg 50 / 50 50 / 50 In 50 ml @ 100 mls/hr IV.SIG Q8H [facility] Rx#:[id number] Output: Urine 200 / 200 Other: Weight 73.6 kg Assessment and Plan - Assessment (1) Syncope Code(s): R55 - Syncope and collapse Status: Acute (2) Hemorrhage of right temporal lobe Code(s): I61.1 - Nontraumatic intracerebral hemorrhage in hemisphere, cortical Status: Acute (3) Closed fracture of tripod Code(s): S02.402A - Zygomatic fracture, unspecified side, initial encounter for closed fracture Status: Acute (4) Fall Code(s): W19.XXXA - Unspecified fall, initial encounter Status: Acute - Plan 1. Multiple syncopal episodes. Micra PPM placed and interrogated in working order Metallic taste and smells sulfur before events, possible seizure Neurology seeing for seizures 2. Right temporal intraparenchymal hemorrhage. 3. Left-sided zygomaticomaxillary complex fracture as well as a nondisplaced left infraorbital rim fracture. For surgery today 4. Previous sinus pauses, status post Micra pacemaker placement. 5. EF 50-55% 6. No further cardiovascular work up Will see PRN, call with questions (3) Closed fracture of tripod Qualifiers: Encounter type: initial encounter Qualified Code(s): S02.402A - Zygomatic fracture, unspecified side, initial encounter for closed fracture (4) Fall Qualifiers: Encounter type: initial encounter Qualified Code(s): W19.XXXA - Unspecified fall, initial encounter
--- NOTE | 2018-04-27 14:03 | P.DS ---
Date of admission: 04/24/18 13:44 Primary care physician: Christian Rodrigues MD Brief History from admission: S/P Fall DS: Medications - Discharge Medications Prescriptions: levetiracetam [Keppra] 500 mg PO BID #60 tab DS: Summary Hospital Course: EDDIE: Fell from the standing position striking his face. Attempted to stand and had a syncopal episode. + LOC. GCS = 15. INJURIES: RIGHT temporal IPH LEFT tripod fx PMHx: COPD , HTN, HLD, syncope, pacemaker RIGHT temporal IPH Neurosurgery consulted Nonoperative management Repeat CT brain shows evolving IPH Avoid second head injury Post-concussive education Continue Keppra LEFT tripod fx OMFS consulted, F/U outpatient 04/26: ORIF of the left zygomaticomaxillary complex fracture Soft diet Sinus precautions Pain control Bowel regimen OOB- PT and OT ordered ? Syncope Cardiology consulted Attempted to get pacemaker interrogated but it does not record events Echocardiogram shows EF 50-55% Carotid ultrasound shows ~50% stenosis bilaterally Neurology consulted for questionable seizure EEG pending for today Continue Kin, F/U with neurology outpatient. 1 month supply RX provided at DC F/U with PCP in 1 week Plan of care discussed with patient at bedside. Collaborating Trauma surgeon agrees with plan. Case management consulted to assist with discharge planning. Pt is cleared from trauma surgery standpoint to safely DC home. D/W Dr Carmichael. - Time Spent with Patient Total time spent providing and/or coordinating discharge services: Greater than 30 minutes - Quality: VTE Deep Vein Thrombosis/Pulmonary Embolism Present on Admission: No Exam Vital signs: Vital Signs 04/26/18 14:15 04/26/18 14:30 04/26/18 14:40 Temperature Pulse Rate 77 70 Respiratory Rate 18 15 Blood Pressure 140/65 142/66 H Pulse Oximetry 100 100 98 04/26/18 14:45 04/26/18 16:00 04/26/18 20:00 Temperature 97.7 F 97.5 F L 98.3 F Pulse Rate 70 74 86 Respiratory Rate 15 20 16 Blood Pressure 151/66 H 135/62 146/65 H Pulse Oximetry 98 97 95 04/27/18 00:00 04/27/18 03:08 04/27/18 04:00 Temperature 98.1 F 98.1 F Pulse Rate 97 H 60 Respiratory Rate 16 18 16 Blood Pressure 135/64 132/60 Pulse Oximetry 93 L 95 Intake & Output 04/26/18 04/27/18 04/27/18 18:59 06:59 18:59 Intake Total 1830 / 1830 1100 / 1100 Output Total 20 / 20 200 / 200 Balance 1810 / 1810 900 / 900 Weight 73.6 kg Intake: IV 1000 / 1000 1100 / 1100 NS Inj 1,000 ML @ 100 mls/hr IV 1000 / 1000 1000 / 1000 .CONT .Q10H [facility] Rx#:[id number] Cleocin 600 mg/NS Premix 600 mg 100 / 100 In 50 ml @ 100 mls/hr IV.SIG Q8H [facility] Rx#:[id number] Oral 30 / 30 Anesthesia Amount 800 / 800 Output: Urine 200 / 200 Estimated Blood Loss Other: # Voids 3 # Bowel Movements 1 Narrative: GENERAL: 83-year-old well-nourished, well developed male OOB in chair. SKIN: Warm and dry. Left periorbital edema and ecchymosis extending down face to lateral neck. HEAD: Normocephalic. EYES: Pupils equal and round. No scleral icterus. ENT: No nasal bleeding or discharge. Mucous membranes pink and moist. NECK: Trachea midline. No JVD. CARDIOVASCULAR: Regular rate and rhythm. RESPIRATORY: No accessory muscle use. Lungs clear to auscultation bilaterally. GASTROINTESTINAL: Abdomen soft, non-tender, nondistended. + BS. MUSCULOSKELETAL: Extremities without cyanosis, or edema. MAEW, + perfused NEUROLOGICAL: Awake and alert. Normal speech. Results Procedures completed during hospitalization: 04/26: ORIF of the left zygomaticomaxillary complex fracture. - Impressions ITS Impressions Carotid Doppler Study 04/24/18 00:00 CONCLUSION: 1. Right Internal Carotid Artery: Findings indicate <50% stenosis. 2. Left Internal Carotid Artery: Findings indicate <50% stenosis. Chest X-Ray 04/24/18 00:00 CONCLUSION: Mild right basilar streakiness consistent with possible atelectasis and/or developing infiltrate. Clinical correlation is recommended. Cervical Spine CT 04/24/18 09:31 CONCLUSION: 1. Degenerative changes with uncinate ridging. No fracture. Face CT 04/24/18 09:31 CONCLUSION: 1. Tripod fracture with significant depression malar eminence with buckling of the lateral wall of the left maxillary sinus. 2. Nondisplaced fracture of the left inferior orbital rim. 3. Medial left orbital rim intact. Head CT 04/25/18 06:15 CONCLUSION: 1. Persistent small area of hemorrhage in the right temporal lobe. This appears to be evolving and slightly smaller on the current exam. New areas of hemorrhage are not seen. 2. Atrophy with some expansion of the extra axial spaces and widening of the cortical sulci. 3. Left maxillary, zygomatic arch and presumably orbital floor fractures. . Discharge Plan - Discharge Disposition Patient Disposition: Discharge Home - Discharge Condition Condition: Stable - Discharge Order Discharge Orders: Discharge Order (Routine); Ordered 04/27/18 Ordered By: Tutu Trejo Neurology Clear for Discharge (Routine); Ordered 04/27/18 Ordered By: Corey Oliveira - Physicians Team Primary Care Provider: Christian Rodrigues Attending Provider: Elroy Gil Other Providers: River Esquivel MD ; Alex Zuñiga MD ; Piero Cox MD ; [employer] ; Mal Recinos MD ; Sanjana Aguilar ARNP ; Elroy Gil MD ; Abida Nash MD ; Tutu Trejo ARNP ; Rashad Naik MD ; Piedad Lu DO ; Aron Candelaria DO ; Corey Oliveira MD
[2018-04-27 16:06] VITALS: O2SAT 94
== END 2018-04-27 13:12 | disposition home or self-care (01) ==
LOC: NEPC 09:03 → NEDA 13:44 → N03 16:47 → N05 04-26 15:07
PROVIDERS: ADMIT Surgery; ATTEND Surgery
PROC: ORIFMAN (2018-04-26 12:00)